=== PATIENT | female | born 1990 | race Caucasian/White ===

== ENCOUNTER 2024-02-17 07:37 | Inpatient (IN) ==
[2024-02-17] MEDS ORDERED: CALCIUM CARBONATE 500 MG CHEWABLE TAB PO PRN (09:56)
[2024-02-17] MEDS ORDERED: LIDOCAINE 1% LOCAL 20 ML VIAL INFIL PRN (09:56)
--- NOTE | 2024-02-17 10:05 | History & Physical Report ---
Date of Service February 17, 2024 Assessment & Plan (1) Post-dates : Plan: IOL with Cytotec Admission and Anticipated Discharge Date Admission Date: February 17, 2024 History of Present Illness Chief Complaint: induction of labor Primary Care Provider: Trevor Khan DO 34 F P1001 at 40.4 weeks admitted for IOL for post-dates. GBS is negative. Allergies Allergy/AdvReac Type Severity Reaction Status Date / Time hazelnut Allergy Anaphylaxis Verified 02/17/24 08:07 Home Medications Medication Instructions Recorded Confirmed Type EPINEPHRINE (EPIPEN) 0.3 mg IM UD ALLERGIC REACTION ##2 04/14/14 Rx omeprazole 20 mg capsule,delayed 20 mg PO DAILY 02/17/24 02/17/24 History release vits no.130-ferrous fum 1 tab PO DAILY 02/17/24 02/17/24 History 27 mg iron-folic acid 800 mcg tablet ( Vitamin) Patient History Surgical History [place] teeth removed Family History Other Colon cancer Social History Smoking Status: Never smoker Hx Alcohol Use: No Hx Substance Use: No Preferred Language: Australian Communication Ability: Effective Flower Picker Required: No Beliefs That Will Affect Care: None marital status: Current Living Situation: Spouse Other Information That Helps Us Care for You: No Feels Safe at Home: Yes Safety Concerns: Feels Safe At This Time Assistive Devices: None OB History x1 NUTRITIONALIST History neg Review of Systems All systems reviewed & are unremarkable except as noted in HPI & below Physical Exam Constitutional: WD/WN, vitals as above Eyes: PERRL, conjunctivae normal, anicteric sclerae Respiratory: normal respiratory effort, lungs clear to auscultation Gastrointestinal (Abdomen): Inspection/Auscultation: abdomen normal to inspection Musculoskeletal: Extremities: extremities normal to inspection Skin: no rashes, warm and dry Neurologic: patellar DTR's 2+ bilat, sensation intact Psychiatric: A+Ox3, euthymic affect Genitourinary: OB Exam Abdomen: + fundal height, + vertex and + posterior Manual OB Exam: + cervical dilation fingertip, + cervical effacement 50% and + station high EFW 8.5 Results & Data Vital Signs (Past 12 Hours) Vital Signs Pulse BP 02/17/24 07:56 85 123/79 Code Status & VTE Plan VTE Prophylaxis Plan VTE Prophylaxis will be ordered: No Monitoring External Monitor Cat 1 (1) Post-dates Post-term type: 40-42 weeks gestation Qualified Code(s): O48.0 - P ost-term
[2024-02-17] MEDS: miSOPROStoL 50 MCG TAB PO ONE (10:22)
[2024-02-17 10:27] LABS: Hematocrit (blood only) 37.1 % (37.0-47.0); Hemoglobin 12.6 g/dl (12.0-16.0); Mean Corpuscular Hemoglobin 30.1 pg (25.0-34.0); Mean Corpuscular Volume 88.5 fL (80.0-100.0); Platelet Count 189 K/uL (130-400); RDW Coefficient of Variation 13.2 % (11.5-14.5); RDW Standard Deviation 42.7 fL (36.4-46.3); Red Blood Count 4.19 M/uL (4.20-5.40); White Blood Count 13.39 K/ul (4.8-10.8)
--- OUTSIDE RECORDS SUMMARY | 2024-02-17 13:12 | External Medical Summary | Summary of Care ---
Author Name Unknown Organization [facility] Address [address] [place] [address] Phone [phone] Care Team Providers Care Mixer Wet Pour Name Role Phone Bernadette Damian Luz Marina ZOHRA Primary Care Provider Reason for Visit * Reason Comments Return Visit Non Stress Test Encounter Details Date Type Department Care Team (Late st Contact Info) Description 02/13/2024 2:30 PM EDT Office Visit Gynecology/Obstetric s [facility] [address] [facility] [place] [address] Thad Snider MD [address] [facility] [address] [place], Non Stress Tests [facility] [address] [facility] [address] Obesity, Class II, BMI 35-39.9, isolated (see actual BMI)*; Supervision of other normal , antepartum; History of depression Allergies Active Allergy Reactions Criticality Noted Date Comments Food (See Comments) High 11/04/2014 Hazelnut - anaphylaxis documented as of this encounter (statuses as of 02/13/2024) Medications Medication Sig Dispensed Refills Start Date End Date Status Plus 27-1 MG Oral Tablet Take 1 Tablet by mouth in the morning. Active Omeprazole 20 MG Oral Tablet Delayed ReleaseIndications:Dy sphagia, unspecified type Take 1 Tablet by mouth in the morning. 90 Tablet 3 05/09/2023 Active Triamcinolone Acetonide 0.1 % External Ointment (Aristocort) Apply 2x daily to rash on legs until resolved, then when flaring. See printed checkout sheet for regimen instructions. 80 g 06/21/2023 Active documented as of this encounter (statuses as of 02/13/2024) Active Problems Problem Noted Date Diagnosed Date Supervision of other normal , antepartu m 07/26/2023 History of depression 07/26/2023 Obesity, Class I, BMI 30.0-34.9 (see actual BMI) 06/24/2021 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 Overview: Per tiller worker/onc, yearly pelvic u/s and endometrial biopsy Tree nut allergy 04/23/2014 Overview: [place] - immediate mouth and throat itching and swelling; hoarseness; positive skin test Well adult exam 04/05/2012 Obesity, Class II, BMI 35-39.9, isolated (see ac tual BMI) 04/05/2012 Overview: Early glucola Serial growth Weekly nst starting at 37w Estimated Date of Delivery Comme nts Yes 02/13/2024 Based on last me nstrual period of 05/09/2023 documented as of this encounter (statuses as of 02/13/2024) Resolved Problems Problem Noted Date Diagnosed Date Resolved Date Normal in first trimester 07/01/2023 01/03/2024 Class II obesity 07/01/2023 01/03/2024 Need for prophylactic vaccin ation and inoculation against influenza 07/01/2023 01/03/2024 Category III heart rat e tracing during labor and delivery 01/24/2022 03/08/2022 Vacuum-assisted vaginal delivery 01/24/2022 03/08/2022 Post-term , 40-42 weeks of gestation 01/24/20 22 03/08/2022 Abnormal glucose tolerance i n mother complicating 07/24/2021 03/08/2022 Overview: Failed early glucola. 3hr GTT passed and again at 28 w. , normal first 06/24/202102/23 Body mass index (BMI) of 40. 0 to 44.9 in adult 01/24/2017 10/07/2021 Overview: Per Obesity protocol #1 Other acne 04/05/2012 12/29/2021 Menstruation, irregular 01/19/200705/27 Generalized hyperhidrosis 01/19/2007 ADVANCE DIRECTIVE INFORMATION 02/18/2006 12/29/2021 Overview: Not applicable documented as of this encounter (statuses as of 02/13/2024) Immunizations Name Administration Dates Next Due COVID-19 mRNA, LNP-s, No Pre serve, 2-Dose Series ([employer]) 03/24/2021,06/09/2020,05/16/2020 HEP A - Hepatitis A (Adult > 18 yrs) 11/04/2014, 12/08/2011 HPV Vaccine, 4-Valent 02/14/2012,09/27/2011,07/2011 Meningococcal Conjugate Vacc ine (Menactra/Menveo) 01/19/2007 PPD 09/22/2022,12/08/2011,10/05/2010 RSV Vac., Bivalent, Perfusio n F, Pf,0.5 Ml (Abrysvo) 01/03/2024 Seasonal Influenza Vac., MDV , IM, 0.5 mL (Fluzone) 04/23/2014,04/29/2012,02/27/2008 Seasonal Influenza, PF, 6 M & above, IM , (FluLaval or Fluzone) 07/01/2023,12/25/2021,01/20/2021 Seasonal Influenza, Quadriva lent, No Preserve, IM 01/10/2020 Seasonal Influenza, Trivalen t, (IIV3), PF, (Fluzone) 01/03/2024 TDAP (age 10 and older)(Boostrix) 11/28/2023,04/2021,07/11/2017 TDAP, Age 7 and older, IM (Adacel) 01/19/2007 Varicella Vaccine (Chicken Pox) 12/08/2011 documented as of this encounter Social History Tobacco Use Types Packs/Day Years Used Date Smoking Tobacco: Never Smokeless Tobacco: Never Comments:mother smokes Alcohol Use Standard Drinks/Week Comments Yes 0 (1 standard drink = 0.6 oz pur e alcohol) casually PHQ-2 Answer Date Recorded PHQ Adult Total Score 0 03/25/2022 Hunger Vital Sign Answer Date Recorded Within the past 12 months, y ou worried that your food would run out before you got the money to buy more. Never true 09/23/19 23 Within the past 12 months, t he food you bought just didn't last and you didn't have money to get more. Never true 09/22/2022 [place] Depression Scale Answer Date Recorded [place] Depression Scale Total 0 07/01/2023 The thought of harming myself has occurred to me . Never 07/01/2023 Utilities Answer Date Recorded Do you have trouble paying y our heating, water, or electric bill? (Adult - for ages 18 years and over) Not on file 10/11/2023 Is your family able to pay t he heat, water, or electric bill? (Household - for ages 0-17 years) Not on file 10/11/2023 Does your family have access to good internet? (Household - for ages 0-17 years) Not on file 10/11/2023 Social Connections Answer Date Recorded How often do you feel lonely or isolated from those around you? (Adult - for ages 18 years and over) Not on file 10/11/2023 Estimated Date of Delivery Comme nts Yes 02/13/2024 Based on last me nstrual period of 05/09/2023 Sex and Gender Information Value Date Recorded Sex Assigned at Female 11/06/2021 1:06 PM EDT Gender Identity Female 11/06/2021 1:06 PM EDT Sexual Orientation Straight 11/06/2021 1: 06 PM EDT Job Start Date Occupation Industry Not on file Not on file Not on file documented as of this encounter Last Filed Vital Signs Vital Sign Reading Time Taken Comments Blood Pressure - - Pulse - - Temperature - - Respiratory Rate - - Oxygen Saturation - - Inhaled Oxygen Concentration - - Weight 112.5 kg (248 lb) 02/13/2024 2:36 PM EDT Height 162.6 cm (5' 4") 02/13/2024 2:36 PM EDT Body Mass Index 42.57 02/13/2024 2:36 PM EDT documented in this encounter Progress Notes * Thad Snider MD - 02/13/2024 3:07 PM EDT Pt doing well Elev BMI- Joel for induction on Tuesday02/17/24 ASSESSMENT assessment with Non-stress Test completed on 02/13/2024 at 40weeks gestation for indication of obesity heart baseline: 130 bpm Variability: Moderate Decelerations: absent Accelerations: present Contractions: None NST start time: 1430 NST stop time: 1450 NST strip reviewed, interpreted, and approved by OB provider, ashley. NST strip stored in clinic storage file documented in this encounter Nursing Notes * Neli Kerns LPN - 02/13/2024 2:47 PM EDT 40w0d NST, RABIA Denies concerns Scheduled for IOL 02/17/24. documented in this encounter Plan of Treatment Scheduled Procedures Name Priority Associated Diagnoses Date/Ti me COLONOSCOPY FLEXIBLE PROXIMAL DIAGNOSTIC Recall Bearden syndrome Health Maintenance Due Date Last Done Comments Hepatitis B Vaccine (1 of 3 - 19+ 3-dose series) 2010 Depression Screening 03/25/2023 03/25/2022 Colonoscopy Positive Bearden Syndrome Annual,Ages 25 & Up 11/23/2023 11/22/2022, 11/22/2022, 01/09/2021, Additional history exists COVID-19 Vaccine ( season) 2023 03/24/2021, 06/09/2020, 05/16/2020 Pap Smear 06/30/2026 07/01/2023, 03/26, 04/21/2020, Additional history exists Cervical Cancer Screening 06/30/2028 HPV/Co-Test 06/30/2028 07/01/2023 DTap/Tdap Vaccines (5 - Td or Tdap) 11/27/2033 11/28/2023, 10/23/2021, 07/11/2017, Additional history exists MENINGOCOCCAL (MENACTRA/MENVEO) Aged Out 01/19/2007 No longer eligible based on patient's age to complete this topic HPV (Gardasil) Vaccine Completed 2, 09/27/2011, 07/28/2011 RETIRED - COLONOSCOPY-ANNUAL AGES 18-100 Discontinued 11/22/2022, 11/22/2022, 01/09/2021, Additional history exists Influenza Vaccine (FLU shot) Completed 01/03/2024, 07/01/2023, 12/25/2021, Additional history exists Pneumococcal Vaccine: Pediatrics (0 to 5 Years) and At-Risk Patients (6 to 64 Years) Aged Out No longer eligible based on patient's age to complete this topic documented as of this encounter Medical Devices Not on filedocumented as of this encounter Visit Diagnoses Diagnosis Obesity, Class II, BMI 35-39.9, isolated (see actual BMI)- Primary Morbid obesity Supervision of other normal , antepartum History of depression documented in this encounter Advance Directives * Full Code (Latest Code Status on File) Date Activated Date Inactivated Comments 01/23/2022 5:37 PM 01/26/2022 3:08 PM This order r eflects the patients wishes and were consensually agreed upon. Question Answer Comments Discussion of Advance Direct cherelle occurred with: Not Discussed due to patient's condition Care Teams Mixer Wet Pour Relationship Specialty Start Date End Date Bernadette Damian CRNP [address] [place] [id number] PCP - General Nurse Practitioner 09/30/23 documented as of this encounter
--- OUTSIDE RECORDS SUMMARY | 2024-02-17 13:12 | External Medical Summary ---
Author Name Unknown Address Unknown Organization [id number]:[facility] [address] [place] [address] Laboratory Report Ordering Provider Test Date Status GILBERT TORRES 02/03/2024 14:52:49 Final Observation Date Value Abnormality Reference (Units ) Status Streptococcus agalactiae DNA [Presence] in Specimen by HERMAN with probe detection 02/03/2024 14:52:49 Negative Negative Final No Group B Streptococcus det ected by culture-enhanced PCR (amplified probe). GBS GBSCT - [facility] 02/03/2024 14:52:49 0.0 Final GBS SPCCT - [facility] 02/03/2024 14:52:49 30.6 Final Performing Location [facility] [place] [address] [place] [address]
--- OUTSIDE RECORDS SUMMARY | 2024-02-17 13:12 | External Medical Summary | Summary of Care ---
Author Name Unknown Organization [facility] Address [address] [place] [address] Phone [phone] Care Team Providers Care Survey Rodman Name Role Phone Bernadette Damian Luz Marina العلي Primary Care Provider Reason for Visit * Reason Comments Return Visit Non Stress Test Encounter Details Date Type Department Care Team (Late st Contact Info) Description 02/03/2024 2:15 PM EDT Office Visit Gynecology/Obstetric s [facility] [address] [facility] [place] [address] Genevieve Ordoñez CRNP [address] [facility] [place] [address] [place], Non Stress Tests [facility] [address] [facility] [address] Supervision of other normal , antepartum*; Obesity, Class II, BMI 35-39.9, isolated (see actual BMI); History of depression Allergies Active Allergy Reactions Criticality Noted Date Comments Food (See Comments) High 11/04/2014 Hazelnut - anaphylaxis documented as of this encounter (statuses as of 02/03/2024) Medications Medication Sig Dispensed Refills Start Date [...] as of this encounter (statuses as of 02/03/2024) Active Problems Problem Noted Date Diagnosed Date Supervision of other normal , antepartu m 07/26/2023 History of depression 07/26/2023 Obesity, Class I, BMI 30.0-34.9 (see actual BMI) 06/24/2021 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 Overview: Per gyn physician/onc, yearly pelvic u/s and endometrial biopsy Tree [...] as of this encounter (statuses as of 02/03/2024) Resolved Problems Problem Noted Date Diagnosed Date [...] as of this encounter (statuses as of 02/03/2024) Immunizations Name Administration Dates Next Due COVID-19 mRNA, LNP-s, No Pre serve, 2-Dose Series ([employer]) 03/24/2021,06/09/2020,05/16/2020 HEP A - Hepatitis A (Adult [...] money to get more. Never true 09/22/2022 [place] Depression Scale Answer Date Recorded [place] Depression Scale Total 0 07/01/2023 The thought [...] Sign Reading Time Taken Comments Blood Pressure 122/78 02/03/2024 2:19 PM EDT Pulse - - Temperature - - Respiratory Rate - - Oxygen Saturation - - Inhaled Oxygen Concentration - - Weight 111.6 kg (246 lb) 02/03/2024 2:19 PM EDT Height 162.6 cm (5' 4") 02/03/2024 2:19 PM EDT Body Mass Index 42.23 02/03/2024 2:19 PM EDT documented in this encounter Progress Notes * Genevieve Ordoñez CRNP - 02/03/2024 2:33 PM EDT 38w4d No concerns. Baby is active. No contractions or bleeding. IOL scheduled. GBS today. Smt Machine Operator Documentation Provider requested construction economist. Name of construction economist: Key ASSESSMENT assessment with Non-stress Test completed on 02/03/2024 at 38.4weeks gestation for indicationof obesity heart baseline: 130 bpm Variability: Moderate Decelerations: absent Accelerations: present Contractions: None NST start time: 1422 NST stop time: 1444 NST strip reviewed, interpreted, and approved by OB provider, ZOHRA Newman . NST strip stored in clinic storage file documented in this encounter Plan of Treatment Upcoming Encounters Date Type Department Care Team (Late st Contact Info) Description 02/08/2024 3:15 PM EDT Office Visit Gynecology/Obstetrics [facility] [address] [place] [address] Genevieve Ordoñez CRNP [address] [place] [address] 02/13/2024 2:30 PM EDT Office Visit Gynecology/Obstetrics [facility] [address] [place] [address] Thad Snider MD [address] [place] [address] [facility] Stress Tests Archie [address] [place] [id number] Pending Results Name Type Priority Associated Diagnoses Date /Time GROUP B STREP CULTURE/PCR Lab Routine Supervision of other normal , antepartum 02/03/2024 2:52 PM EDT Scheduled Procedures Name Priority Associated Diagnoses Date/Ti me COLONOSCOPY FLEXIBLE PROXIMAL DIAGNOSTIC Recall Bearden syndrome Health Maintenance Due Date Last Done Comments Hepatitis B Vaccine (1 of 3 - 19+ 3-dose series) 2010 Depression Screening 03/25/2023 03/25/2022 Colonoscopy Positive Bearden Syndrome Annual,Ages 25 & Up 11/23/2023 11/22/2022, 11/22/2022, 01/09/2021, Additional history exists COVID-19 Vaccine (2023- season) 2023 03/24/2021, 06/09/2020, 05/16/2020 Pap Smear [...] as of this encounter Visit Diagnoses Diagnosis Supervision of other normal , antepartum- Primary Obesity, Class II, BMI 35-39.9, isolated (see actual BMI) Morbid obesity History of depression documented in this encounter Advance Directives * Full Code (Latest Code Status on File) Date Activated Date Inactivated Comments 01/23/2022 5:37 PM 01/26/2022 3:08 PM This order r eflects the patients wishes and were consensually agreed upon. Question Answer Comments Discussion of Advance Direct cherelle occurred with: Not Discussed due to patient's condition Care Teams Survey Rodman Relationship Specialty Start Date End Date Bernadette Damian CRNP [address] [place] [address] PCP - General Nurse Practitioner 09/30/23 documented as of this encounter
--- OUTSIDE RECORDS SUMMARY | 2024-02-17 13:13 | External Medical Summary ---
Author Name Unknown Address Unknown Organization [id number]:[facility] [address] - [address] [facility] [address] Laboratory Report Ordering Provider Test Date Status CULLEN MORA 10/18/2023 09:21:40 Final For PreSurgery, Procedure, O B Admit, or Surveillance testing - Nasal Turbinate source preferred.

For Symptomatic testing - Nasopharyngeal source preferred.
null Observation Date Value Abnormality Reference (Units ) Status SARS Coronavirus 2 10/18/2023 09:21:40 Negative N egative Final 2018 Novel Coronavirus not d etected.

This express test was developed and its performance characteristics determined by [employer] [facility]. It has not been cleared or approved by the U.S. Food and Drug Administration (FDA). FDA does not require this test to go thru premarket FDA review. This test is used for clinical purposes. It should not be regarded as investigational or for research. This laboratory is certified under the Clinical Laboratory Improvement Amendments (CLIA) as qualified to perform high complexity clinical laboratory testing.

This test is a nucleic acid amplification test (NAAT), a reverse transcriptase polymerase chain reaction (RT-PCR) test, or a Centers for Disease Control-acceptable equivalent. The test is performed in a high complexity Clinical Laboratory Improvement Amendments-(CLIA) certified laboratory. The test is acceptable for SARS-CoV-2 diagnosis, surveillance, and travel within the [place] and to most countries. Please check with local testing authorities about requirements before travel.

The validation of bronchial specimens, tracheal aspirates, and sputum for this assay was developed and performance characteristics determined by [employer] [facility]. The validation of alternate specimen types has not been cleared or approved by the U.S. Food and Drug Administration (FDA). It has been determined that such clearance is not necessary. Performing Location [facility] [address] - [address] [place] [address]
--- OUTSIDE RECORDS SUMMARY | 2024-02-17 13:13 | External Medical Summary ---
Author Name Unknown Address Unknown Organization [facility] [facility] [address] [place] [address] Laboratory Report Ordering Provider Test Date Status VIKAS HADLEY 11/28/2023 10:19:57 Final Observation Date Value Abnormality Reference (Units ) Status Glucose [Moles/volume] in Serum or Plasma --1 hour post 50 g glucose PO 11/28/2023 10:19:57 119 70-129 (mg/dL) Final Performing Location [facility] [facility] - [address] [place] [address]
--- OUTSIDE RECORDS SUMMARY | 2024-02-17 13:13 | External Medical Summary | Summary of Care ---
Author Name Unknown Organization [facility] Address [address] [place] [address] Phone [phone] Care Team Providers Care Shelter Supervisor Name Role Phone Bernadette Damian Luz Marina العلي Primary Care Provider Reason for Visit * Reason Comments Return Visit Encounter Details Date Type Department Care Team (Late st Contact Info) Description 11/28/2023 9:15 AM EDT Office Visit Gynecology/Obstetric s [facility] [address] [place] [address] Anali Del Rosario PA-C [address] [place] [address] Supervision of other normal , antepartum*; Obesity, Class II, BMI 35-39.9, isolated (see actual BMI); History of depression; Need for qjggrepswc-imhrzqn-oq rtussis (Tdap) vaccine Allergies Active Allergy Reactions Criticality Noted Date Comments Food (See Comments) High 11/04/2014 Hazelnut - anaphylaxis documented as of this encounter (statuses as of 11/28/2023) Medications Medication Sig Dispensed Refills Start Date [...] as of this encounter (statuses as of 11/28/2023) Active Problems Problem Noted Date Diagnosed Date Supervision of other normal , antepartu m 07/26/2023 History of depression 07/26/2023 Normal in first trimester 07/01/2023 Class II obesity 07/01/2023 Need for prophylactic vaccin ation and inoculation against influenza 07/01/2023 Obesity, Class I, BMI 30.0-34.9 (see actual BMI) 06/24/2021 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 Overview: Per rn gynecology/onc, yearly pelvic u/s and endometrial biopsy Tree [...] as of this encounter (statuses as of 11/28/2023) Resolved Problems Problem Noted Date Diagnosed Date Resolved Date Category III heart rat e tracing during [...] as of this encounter (statuses as of 11/28/2023) Immunizations Name Administration Dates Next Due COVID-19 mRNA, LNP-s, No Pre serve, 2-Dose Series ([employer]) 03/24/2021,06/09/2020,05/16/2020 HEP A - Hepatitis A (Adult > 18 yrs) 11/04/2014, 12/08/2011 HPV Vaccine, 4-Valent 02/14/2012,09/27/2011,04/07/2011 Meningococcal Conjugate Vacc ine (Menactra/Menveo) 01/19/2007 PPD 09/22/2022,12/08/2011,10/05/2010 Seasonal Influenza, PF, 6 M & above, IM , (FluLaval or Fluzone) 07/01/2023,12/25/2021,01/20/2021 Seasonal Influenza, Quadriva lent, No Preserve, IM 01/10/2020 Seasonal Influenza, Split, I IV3, With Preserve, Inj 04/23/2014,04/29/2012,02/27/2008 TDAP (age 10 and older)(Boostrix) 11/28/2023,04/2021,07/11/2017 TDAP, [...] money to get more. Never true 09/22/2022 [place] Depression Scale Answer Date Recorded [place] Depression Scale Total 0 07/01/2023 The thought [...] Sign Reading Time Taken Comments Blood Pressure 98/72 11/28/2023 9:06 AM EDT Pulse - - Temperature - - Respiratory Rate - - Oxygen Saturation - - Inhaled Oxygen Concentration - - Weight 107 kg (236 lb) 11/28/2023 9:06 AM EDT Height 162.6 cm (5' 4") 11/28/2023 9:06 AM EDT Body Mass Index 40.51 11/28/2023 9:06 AM EDT documented in this encounter Progress Notes * Anali Del Rosario PA-C - 11/28/2023 10:28 AM EDT 29w0d Third tri labs including glucola today. Doing well. Growth u/s today secondary to class 2 obesity, preliminary findings: 1311 g+/- 191 g which is at avu04tz percentile. Normal DANIEL. Vertex. Counseled on TDaP, accepts. Varicose vein left inner leg. Pt reports had in last , improved PP. Varicosity noted left inner lower leg, not tender without any firmness or redness. Soft to palpation. Discussed compression stockings -- notify office if increased pain, redness or firmness in area, reviewed thrombophlebitis -- no appearance of this today. Denies LOF, VB, contractions. Baby is active. RTC in 2 weeks Anali Del Rosario PA-C documented in this encounter Nursing Notes * Neli Kerns LPN - 11/28/2023 9:37 AM EDT Patient here for tdap injection. Patient doing well no complaints. Injection given IM as ordered. Patient tolerated well. Patient to follow up as directed. Patient instructed to call if any complications. Patient verbalized understanding of instructions given and her follow up appt for RABIA Injection site: Right Deltoid Medication Source: Dispensed stock medication * Neli Kerns LPN - 11/28/2023 9:23 AM EDT 29w0d Had growth us today, and 28 wk labs Would like tdap documented in this encounter Plan of Treatment Upcoming Encounters Date Type Department Care Team (Late st Contact Info) Description 12/12/2023 9:15 AM EDT Office Visit Gynecology/Obstetrics Lina Valiente [address] [place] [address] Anali Del Rosario PA-C [address] [place] [address] 12/28/2023 3:30 PM EDT Imaging Radiology [address] [place] [address] 12/28/2023 4:30 PM EDT Office Visit Gynecology/Obstetrics [facility] [address] [place] [address] Anali Del Rosario PA-C [address] [place] [address] 01/11/2024 4:30 PM EDT Office Visit Gynecology/Obstetrics [facility] [address] [place] [address] Anali Del Rosario PA-C [address] [place] [address] 2024 4:30 PM EDT Office Visit Gynecology/Obstetrics [facility] [address] [place] [address] Anali Del Rosario PA-C [address] [place] [address] 01/30/2024 3:30 PM EDT Imaging Radiology [address] [place] [address] 01/30/2024 4:30 PM EDT Office Visit Gynecology/Obstetrics [facility] [address] [place] [address] Anali Del Rosario PA-C [address] [place] [address] 02/08/2024 3:15 PM EDT Office Visit Gynecology/Obstetrics [facility] [address] [place] [address] Genevieve Ordoñez CRNP [address] [place] [address] 02/13/2024 4:30 PM EDT Office Visit Gynecology/Obstetrics Lina Valiente [address] [place] [address] Anali Del Rosario PA-C [address] [place] [address] Scheduled Procedures Name Priority Associated Diagnoses Date/Ti me COLONOSCOPY FLEXIBLE PROXIMAL DIAGNOSTIC Recall Bearden syndrome Health Maintenance Due Date Last Done Comments Hepatitis B Vaccine (1 of 3 - 19+ 3-dose series) 2010 COVID-19 Vaccine (2022- season) 2022 03/24/2021, 06/09/2020, 05/16/2020 Depression Screening 03/25/2023 03/25/2022 Colonoscopy Positive Bearden Syndrome Annual,Ages 25 & Up 11/23/2023 11/22/2022, 11/22/2022, 01/09/2021, Additional history exists Influenza Vaccine (FLU shot) (#1) 2023 07/01/2023, 12/25/2021, 01/20/2021, Additional history exists Pap Smear 06/30/2026 07/01/2023, 03/26, 04/21/2020, Additional history exists Cervical Cancer Screening 06/30/2028 HPV/Co-Test 06/30/2028 07/01/2023 DTaP,Tdap,and Td Vaccines (5 - Td or Tdap) 11/27/2033 11/28/2023, 10/23/2021, 07/11/2017, Additional history exists MENINGOCOCCAL (MENACTRA/MENVEO) Aged Out 01/19/2007 No longer eligible based on patient's age to complete this topic HPV (Gardasil) Vaccine Completed 2, 09/27/2011, 07/28/2011 RETIRED - COLONOSCOPY-ANNUAL AGES 18-100 Discontinued 11/22/2022, 11/22/2022, 01/09/2021, Additional history exists Pneumococcal Vaccine: Pediatrics (0 [...] actual BMI) Morbid obesity History of depression Need for cmjoiexaxh-eisnxyz-cwtgjmyok (Tdap) vaccine Need for prophylactic vaccination with combined bkijbeuovr-gtjyyxt-fpvuuyezk (DTP) vaccine documented in this encounter Advance Directives * Full Code (Latest Code Status on File) Date Activated Date Inactivated Comments 01/23/2022 5:37 PM 01/26/2022 3:08 PM This order r eflects the patients wishes and were consensually agreed upon. Question Answer Comments Discussion of Advance Direct cherelle occurred with: Not Discussed due to patient's condition Care Teams Shelter Supervisor Relationship Specialty Start Date End Date Bernadette Damian CRNP [address] [place] [address] PCP - General Nurse Practitioner 09/30/23 documented as of this encounter
--- OUTSIDE RECORDS SUMMARY | 2024-02-17 13:13 | External Medical Summary ---
Author Name Unknown Address Unknown Organization K0G:[facility] [address] [address] [place] [id number] Laboratory Report Ordering Provider Test Date Status VIKAS HADLEY 11/28/2023 10:19:57 Final Observation Date Value Abnormality Reference (Units ) Status WBC, Total 11/28/2023 10:19:57 9.92 4.00-10.8 0 (K/uL) Final RBC 11/28/2023 10:19:57 3.95 3.85-5.15 (M/uL) Final Hemoglobin 11/28/2023 10:19:57 12.3 12.0-15.3 (g/dL) Final Anemia reflex testing trigge rs on a HGB < 12.0 for Females and HGB < 13.0 for Males in accordance with the WHO Anemia Guidelines
Anemia reflex testing triggers on a HGB < 12.0 for Females and HGB < 13.0 for Males in accordance with the WHO Anemia Guidelines HCT 11/28/2023 10:19:57 37.1 36.0-45.2 (%) Final MCV 11/28/2023 10:19:57 93.9 81.5-97.5 (fL) Final MCH 11/28/2023 10:19:57 31.1 27.0-34.0 (pg) Final MCHC 11/28/2023 10:19:57 33.2 32.0-36.0 (g/dL) Final RDW 11/28/2023 10:19:57 12.7 11.5-15.5 (%) Final Platelets 11/28/2023 10:19:57 173 140-400 (K /uL) Final MPV 11/28/2023 10:19:57 10.8 6.6-11.1 ( fL) Final Performing Location [facility] [place] [address] [place] [address]
--- OUTSIDE RECORDS SUMMARY | 2024-02-17 13:13 | External Medical Summary | Summary of Care ---
Author Name Unknown Organization [facility] Address [address] [place] [address] Phone [phone] Care Team Providers Care Senior Executive Assistant Name Role Phone Bernadette Damian Luz Marina ZOHRA Primary Care Provider Reason for Visit * Reason Comments Return Visit Encounter Details Date Type Department Care Team (Late st Contact Info) Description 12/12/2023 9:15 AM EDT Office Visit Gynecology/Obstetric s [facility] [address] [place] [address] Anali Del Rosario PA-C [address] [place] [address] Supervision of other normal , antepartum*; Obesity, Class II, BMI 35-39.9, isolated (see actual BMI); History of depression Allergies Active Allergy Reactions Criticality Noted Date Comments Food (See Comments) High 11/04/2014 Hazelnut - anaphylaxis documented as of this encounter (statuses as of 12/12/2023) Medications Medication Sig Dispensed Refills Start Date [...] as of this encounter (statuses as of 12/12/2023) Active Problems Problem Noted Date Diagnosed Date Supervision of other normal , antepartu m 07/26/2023 History of depression 07/26/2023 Normal in first trimester 07/01/2023 Class II obesity 07/01/2023 Need for prophylactic vaccin ation and inoculation against influenza 07/01/2023 Obesity, Class I, BMI 30.0-34.9 (see actual BMI) 06/24/2021 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 3hr GTT passed and again at 28 w. , normal first 06/24/202102/23 Body mass index (BMI) of 40. 0 to 44.9 in adult 01/24/2017 10/07/2021 Overview: Per Obesity protocol #1 Other acne 04/05/2012 12/29/2021 Menstruation, irregular 01/19/2007 02/2 07/2021 Generalized hyperhidrosis 01/19/2007 ADVANCE DIRECTIVE INFORMATION 02/18/2006 12/29/2021 Overview: Not applicable documented as of this encounter (statuses as of 12/12/2023) Immunizations Name Administration Dates Next Due COVID-19 mRNA, LNP-s, No Pre serve, 2-Dose Series ([employer]) 03/24/2021,06/09/2020,05/16/2020 HEP A - Hepatitis A (Adult > 18 yrs) 11/04/2014, 12/08/2011 HPV Vaccine, 4-Valent 02/14/2012,09/27/2011,0407/2011 Meningococcal Conjugate Vacc ine (Menactra/Menveo) 01/19/2007 PPD [...] money to get more. Never true 09/22/2022 [place] Depression Scale Answer Date Recorded [place] Depression Scale Total 0 07/01/2023 The thought [...] Sign Reading Time Taken Comments Blood Pressure 114/82 12/12/2023 9:08 AM EDT Pulse - - Temperature - - Respiratory Rate - - Oxygen Saturation - - Inhaled Oxygen Concentration - - Weight 107.5 kg (237 lb) 12/12/2023 9:08 AM EDT Height 162.6 cm (5' 4") 12/12/2023 9:08 AM EDT Body Mass Index 40.68 12/12/2023 9:08 AM EDT documented in this encounter Progress Notes * Anali Del Rosraio PA-C - 12/12/2023 9:25 AM EDT 31w0d Has bruise near lateral aspect of right eyebrow. Unsure if daughter bumped it, doesn't remember. Feels it is smaller since first noticing. Advised okay to continue to monitor, notify office if not resolve/enlarging. Growth next visit. Reviewed NST to start at 37 weeks. RTC in 2 weeks Anali Del Rosario PA-C documented in this encounter Nursing Notes * Neli Kerns LPN - 12/12/2023 9:08 AM EDT 31w0d Denies concerns documented in this encounter Plan of Treatment Upcoming Encounters Date Type Department Care Team (Late st Contact Info) Description 12/28/2023 3:30 PM EDT Imaging Radiology [facility] [address] [place] [address] 12/28/2023 4:30 PM EDT Office Visit Gynecology/Obstetrics [facility] [address] [place] [address] Anali Del Rosario PA-C [address] [place] [address] 01/11/2024 4:30 PM EDT Office Visit Gynecology/Obstetrics [facility] [address] [place] [address] Anali Del Rosario PA-C [address] [place] [address] 2024 4:30 PM EDT Office Visit Gynecology/Obstetrics [facility] [address] [place] [address] Anali Del Rosario PA-C [address] [place] [address] 01/30/2024 3:30 PM EDT Imaging Radiology [facility] [address] [place] [address] 01/30/2024 4:30 PM EDT Office Visit Gynecology/Obstetrics [facility] [address] [place] [address] Anali Del Rosario PA-C [address] [place] [address] 02/08/2024 3:15 PM EDT Office Visit Gynecology/Obstetrics [facility] [address] [place] [address] Genevieve Ordoñez CRNP [address] [place] [address] 02/13/2024 4:30 PM EDT Office Visit Gynecology/Obstetrics [facility] [address] [place] [address] Anali Del Rosario PA-C [address] [place] [address] Scheduled Orders Name Type Priority Associated Diagnoses Orde r Schedule US PREG FOLLOW-UP EACH FETUS Medical Imaging Routine Supervision of other normal , antepartum Obesity, Class II, BMI 35-39.9, isolated (see actual BMI) Expected: 12/28/2023, Expires: 01/11/2025 Scheduled Procedures Name Priority Associated Diagnoses Date/Ti me COLONOSCOPY FLEXIBLE PROXIMAL DIAGNOSTIC Recall Bearden syndrome Health Maintenance Due Date Last Done Comments Hepatitis B Vaccine (1 of 3 - 19+ 3-dose series) 2010 COVID-19 Vaccine ( season) 2022 03/24/2021, 06/09/2020, 05/16/2020 Depression Screening [...] Discussed due to patient's condition Care Teams Senior Executive Assistant Relationship Specialty Start Date End Date Bernadette Damian CRNP [address] [place] [address] PCP - General Nurse Practitioner 09/30/23 documented as of this encounter
--- OUTSIDE RECORDS SUMMARY | 2024-02-17 13:13 | External Medical Summary | Summary of Care ---
Author Name Unknown Organization [facility] Address [address] [place] [address] Phone [phone] Care Team Providers Care Certified [place] Administrator Name Role Phone Bernadette Damian Luz Marina العلي Primary Care Provider Reason for Visit * Reason Onset Date Comments Advice 10/24/2023 Encounter Details Date Type Department Care Team (Late st Contact Info) Description 10/24/2023 Telephone Family Practice [facility] [address] [place] [address] Fuentes Crook DO [address] [place] [address] Advice Allergies Active Allergy Reactions Criticality Noted Date Comments Food (See Comments) High 11/04/2014 Hazelnut - anaphylaxis documented as of this encounter (statuses as of 10/24/2023) Medications Medication Sig Dispensed Refills Start Date End Date Status Plus 27-1 MG Oral Tablet Take 1 Tablet by mouth in the morning. Active Omeprazole 20 MG Oral Tablet Delayed ReleaseIndications :Dysphagia, unspecified type Take 1 Tablet by mouth in the morning. 90 Tablet 3 05/09/2023 Active Additional Information Patient not taking.Reported on 07/01/2023 Triamcinolone Acetonide 0.1 % External Ointment (Aristocort) Apply 2x daily to rash on legs until resolved, then when flaring. See printed checkout sheet for regimen instructions. 80 g 06/21/2023 Active Amoxicillin 875 MG Oral TabletIndications: Bronchitis, complicated Take 1 Tablet by mouth in the morning and 1 Tablet before bedtime. Do all this for 10 days. 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, yearly pelvic u/s and endometrial biopsy Tree [...] as of this encounter (statuses as of 10/24/2023) Resolved Problems Problem Noted Date Diagnosed Date [...] as of this encounter (statuses as of 10/24/2023) Immunizations Name Administration Dates Next Due COVID-19 mRNA, LNP-s, No Pre serve, 2-Dose Series ([employer]) 03/24/2021,06/09/2020,05/16/2020 HEP A - Hepatitis A (Adult > 18 yrs) 11/04/2014, 12/08/2011 HPV Vaccine, 4-Valent 02/14/2012,09/27/2011,04/0 07/2011 Meningococcal Conjugate Vacc ine (Menactra/Menveo) 01/19/2007 PPD 09/22/2022,12/08/2011,10/05/2010 Seasonal Influenza, PF, 6 M & above, IM , (FluLaval or Fluzone) 07/01/2023,12/25/2021,01/20/2021 Seasonal Influenza, Quadriva lent, No Preserve, IM 01/10/2020 Seasonal Influenza, Split, I IV3, With Preserve, Inj 04/23/2014,04/29/2012,02/27/2008 TDAP (age 10 and older)(Boostrix) 10/23/2021, TDAP, Age 7 and older, IM (Adacel) [...] money to get more. Never true 09/22/2022 [place] Depression Scale Answer Date Recorded [place] Depression Scale Total 0 07/01/2023 The thought [...] on file documented as of this encounter Miscellaneous Notes * Telephone Encounter - Krysta Dinero RN - 10/24/2023 4:02 PM EDT Pt made aware in myg encounter from 10/19 * Telephone Encounter - Fuentes Crook DO - 10/24/2023 3:28 PM EDT Ok to try amox But may still be viral Either way f/u in clinic if worsening * Telephone Encounter - Olga Rodriguez LPN - 10/24/2023 8:22 AM EDT Pt calling due to being seen by Dr Crook on 10/17 for a cough. There has not been any improvement. She is coughing phlegm up greenish yellow. No fever. She did take mucinex but is 24 weeks and concerned about taking OTC meds. She is inquiring if ABX could be sent? Please advise. documented in this encounter Plan of Treatment Upcoming Encounters Date Type Department Care Team (Late st Contact Info) Description 10/31/2023 8:15 AM EDT Imaging Radiology [address] [place] [address] 10/31/2023 9:15 AM EDT Office Visit Gynecology/Obstetrics [facility] [address] [place] [address] Anali Del Rosario PA-C [address] [place] [address] 11/28/2023 8:15 AM EDT Imaging Radiology [address] [place] [address] 11/28/2023 9:15 AM EDT Office Visit Gynecology/Obstetrics [facility] [address] [place] [address] Anali Del Rosario PA-C [address] [place] [address] 12/12/2023 9:15 AM EDT Office Visit Gynecology/Obstetrics [facility] [address] [place] [address] Anali Del Rosario PA-C [address] [place] [address] 12/28/2023 3:30 PM EDT Imaging Radiology [address] [place] [address] 12/28/2023 4:30 PM EDT Office Visit Gynecology/Obstetrics [facility] [address] [place] [address] Anali Del Rosario PA-C [address] [place] [address] 01/11/2024 4:30 PM EDT Office Visit Gynecology/Obstetrics [facility] [address] [place] [address] Anali Del Rosario PA-C [address] [place] [address] 2024 4:30 PM EDT Office Visit Gynecology/Obstetrics [facility] [address] [place] [address] Anali Del Rosario PA-C [address] [place] [address] 01/30/2024 3:30 PM EDT Imaging Radiology [address] [place] [address] 01/30/2024 4:30 PM EDT Office Visit Gynecology/Obstetrics [facility] [address] [place] [address] Anali Del Rosario PA-C [address] [place] [address] 02/08/2024 3:15 PM EDT Office Visit Gynecology/Obstetrics [facility] [address] [place] [address] Genevieve Ordoñez CRNP [address] [place] [address] 02/13/2024 4:30 PM EDT Office Visit Gynecology/Obstetrics Lina Valiente [address] [place] [address] Anali Del Rosario PA-C [address] [place] [address] Scheduled Procedures Name Priority Associated Diagnoses Date/Ti me COLONOSCOPY FLEXIBLE PROXIMAL DIAGNOSTIC Recall Bearden syndrome Health Maintenance Due Date Last Done Comments Hepatitis B (1 of 3 - 19+ 3-dose series) [...] 06/30/2028 HPV/Co-Test 06/30/2028 07/01/2023 DTaP,Tdap,and Td Vaccines (4 - Td or Tdap) 10/24/2031 10/23/2021, 07/11/2017, 01/19/2007 MENINGOCOCCAL (MENACTRA/MENVEO) Aged Out 01/19/2007 No longer eligible based on patient's age to complete this topic GARDASIL-HPV IMMUNIZATION SERIES Completed 02/14/2012, 09/27/2011, 07/28/2011 RETIRED - COLONOSCOPY-ANNUAL AGES 18-100 Discontinued 11/22/2022, 11/22/2022, 01/09/2021, Additional history exists Pneumococcal Vaccine: Pediatrics (0 to 5 Years) and At-Risk Patients (6 to 64 Years) Aged Out No longer eligible based on patient's age to complete this topic documented as of this encounter Medical Devices Not on filedocumented as of this encounter Visit Diagnoses Diagnosis Bronchitis, complicated- Primary Bronchitis, not specified as acute or chronic documented in this encounter Advance Directives * Full Code (Latest Code Status on File) Date Activated Date Inactivated Comments 01/23/2022 5:37 PM 01/26/2022 3:08 PM This order r eflects the patients wishes and were consensually agreed upon. Question Answer Comments Discussion of Advance Direct cherelle occurred with: Not Discussed due to patient's condition Care Teams Certified [place] Administrator Relationship Specialty Start Date End Date Bernadette Damian CRNP [address] [place] [address] PCP - General Nurse Practitioner 09/30/23 documented as of this encounter
--- OUTSIDE RECORDS SUMMARY | 2024-02-17 13:13 | External Medical Summary | Summary of Care ---
Author Name Unknown Organization [facility] Address [address] [place] [address] Phone [phone] Care Team Providers Care Fire Alarm Mechanic Name Role Phone Bernadette Damian Luz Marina العلي Primary Care Provider Reason for Visit * Reason Comments Return Visit Encounter Details Date Type Department Care Team (Late st Contact Info) Description 01/23/2024 2:30 PM EDT Office Visit Gynecology/Obstetric s [facility] [address] [place] [address] Thad Snider MD [address] [place] [address] [place], Non Stress Tests [facility] [address] [place] [address] Obesity, Class II, BMI 35-39.9, isolated (see actual BMI)*; Supervision of other normal , antepartum; History of depression Allergies Active Allergy Reactions Criticality Noted Date Comments Food (See Comments) High 11/04/2014 [place]nut - anaphylaxis documented as of this encounter (statuses as of 01/23/2024) Medications Medication Sig Dispensed Refills Start Date [...] as of this encounter (statuses as of 01/23/2024) Active Problems Problem Noted Date Diagnosed Date Supervision of other normal , antepartu m 07/26/2023 History of depression 07/26/2023 Obesity, Class I, BMI 30.0-34.9 (see actual BMI) 06/24/2021 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 Overview: 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, yearly pelvic u/s and endometrial biopsy Tree [...] as of this encounter (statuses as of 01/23/2024) Resolved Problems Problem Noted Date Diagnosed Date [...] as of this encounter (statuses as of 01/23/2024) Immunizations Name Administration Dates Next Due COVID-19 mRNA, LNP-s, No Pre serve, 2-Dose Series ([employer]) 03/24/2021,06/09/2020,05/16/2020 HEP A - Hepatitis A (Adult > 18 yrs) 11/04/2014, 12/08/2011 HPV Vaccine, 4-Valent 02/14/2012,09/27/2011,0407/2011 Meningococcal Conjugate Vacc ine (Menactra/Menveo) 01/19/2007 PPD 09/22/2022,12/08/2011,10/05/2010 RSV Vac., Bivalent, Perfusio n F, Pf,0.5 Ml (Abrysvo) 01/03/2024 Seasonal Influenza, PF, 6 M & above, IM , (FluLaval or Fluzone) 07/01/2023,12/25/2021,01/20/2021 Seasonal Influenza, Quadriva lent, No Preserve, IM 01/10/2020 Seasonal Influenza, Trivalen t, (IIV3), PF, (Fluzone) 01/03/2024 Seasonal Influenza, Trivalen t, (IIV3), with Preserv, (Fluzone) 04/23/2014,04/29/2012,02/27/2008 TDAP (age 10 and older)(Boostrix) 11/28/2023,04/2021,07/11/2017 [...] money to get more. Never true 09/22/2022 [place] Depression Scale Answer Date Recorded [place] Depression Scale Total 0 07/01/2023 The thought [...] - Inhaled Oxygen Concentration - - Weight 110.2 kg (243 lb) 01/23/2024 2:33 PM EDT Height - - Body Mass Index 41.71 12/12/2023 9:08 AM EDT documented in this encounter Progress Notes * Thad Snider MD - 01/23/2024 3:14 PM EDT Pt doing well No complaints Obesity class II ASSESSMENT assessment with Non-stress Test completed on 01/23/2024 at 37weeks gestation for indication ofobesity heart baseline: 140 bpm Variability: Moderate Decelerations: absent Accelerations: present Contractions: None NST start time: 1430 NST stop time: 1450 NST strip reviewed, interpreted, and approved by OB provider, ashley. NST strip stored in clinic storage file Thad Snider MD 01/23/2024 3:15 PM] documented in this encounter Nursing Notes * Michelle Oates LPN - 01/23/2024 3:07 PM EDT 37w0d Pt asking to do GBS at next visit Pt would also like to deliver at [facility] now documented in this encounter Plan of Treatment Upcoming Encounters Date Type Department Care Team (Late st Contact Info) Description 01/30/2024 3:30 PM EDT Imaging Radiology [facility] 2nd [facility] [address] [place] [address] 02/03/2024 2:15 PM EDT Office Visit [facility]necology[facility] [address] [place] [address] Genevieve Ordoñez CRNP [address] [place] [address] [place] Non Stress Tests [facility] [address] [place] [address] 02/08/2024 3:15 PM EDT Office Visit Gynecology/Obstetrics [facility] [address] [facility] [facility] [place] [place] [address] Genevieve Ordoñez CRNP [address] [place] [address] 02/13/2024 2:30 PM EDT Office Visit Gynecology/Obstetrics [facility] [address] [facility] [place] [address] Thad Snider MD [address] [place] [address] [facility] Stress Tests [facility] [address] [place] [address] Scheduled Procedures Name Priority Associated Diagnoses Date/Ti [...] Discussed due to patient's condition Care Teams Fire Alarm Mechanic Relationship Specialty Start Date End Date Bernadette Damian CRNP [address] [place] [address] PCP - General Nurse Practitioner 09/30/23 documented as of this encounter
--- OUTSIDE RECORDS SUMMARY | 2024-02-17 13:13 | External Medical Summary | Summary of Care ---
Author Name Unknown Organization [facility] Address [address] [place] [place] [address] Phone [phone] Care Team Providers Care Football Scout Name Role Phone Bernadette Damian Luz Marina العلي Primary Care Provider Encounter Details Date Type Department Care Team (Late st Contact Info) Description 12/12/2023 Telephone Gynecology/Obstetrics [facility] [address] [place] [address] Anali Del Rosario PA-C [address] [facility] [place] [address] Allergies Active Allergy Reactions Criticality Noted Date Comments Food (See Comments) High 11/04/2014 Hazelnut - anaphylaxis documented as of this encounter (statuses as of 12/13/2023) Medications Medication Sig Dispensed Refills Start Date [...] as of this encounter (statuses as of 12/13/2023) Active Problems Problem Noted Date Diagnosed Date Supervision of other normal , antepartu m 07/26/2023 History of depression 07/26/2023 Normal in first trimester 07/01/2023 Class II obesity 07/01/2023 Need for prophylactic vaccin ation and inoculation against influenza 07/01/2023 Obesity, Class I, BMI 30.0-34.9 (see actual BMI) 06/24/2021 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 Never true 09/22/2022 [place] Depression Scale Answer Date Recorded [place] Depression Scale Total 0 07/01/2023 The thought [...] encounter Miscellaneous Notes * Telephone Encounter - Kady Nath RN - 12/12/2023 9:51 AM EDT Patient calling to start scheduling NSTs at 37w. Please contact patient to help schedule. documented in this encounter Plan of Treatment Upcoming Encounters Date Type Department Care Team (Late st Contact Info) Description 12/28/2023 3:30 PM EDT Imaging Radiology [facility] 2nd [facility] [address] [place] [address] 12/28/2023 4:30 PM EDT Office Visit Gynecology/Obstetrics [facility] [address] [place] [address] Anali Del Rosario PA-C [address] [place] [address] 01/11/2024 4:30 PM EDT Office Visit Gynecology/Obstetrics [facility] [address] [place] [address] Anali Del Rosario PA-C [address] [place] [address] 01/23/2024 4:30 PM EDT Office Visit Gynecology/Obstetrics [facility] [address] [place] [address] Anali Del Rosario PA-C [address] [place] [address] 2024 2:30 PM EDT Office Visit Gynecology/Obstetrics [facility] [address] [place] [address] Genevieve Ordoñez CRNP [address] [place] [address] [place] Non Stress Tests [facility] [address] [place] [address] 01/30/2024 3:30 PM EDT Imaging Radiology [facility] 2nd Floor, [place] [address] [place] [address] 01/30/2024 4:30 PM EDT Office Visit Gynecology/Obstetrics [facility] [address] [place] [address] Anali Del Rosario PA-C [address] [place] [address] 02/08/2024 3:15 PM EDT Office Visit Gynecology/Obstetrics [facility] [address] [place] [address] Genevieve Ordoñez CRNP [address] [place] [address] 02/13/2024 4:30 PM EDT Office Visit Gynecology/Obstetrics [facility] [address] [place] [address] Anali Del Rosario PA-C [address] [place] [address] Scheduled Procedures Name Priority Associated Diagnoses Date/Ti [...] Not on filedocumented as of this encounter Advance Directives * Full Code (Latest Code Status on File) Date Activated Date Inactivated Comments 01/23/2022 5:37 PM 01/26/2022 3:08 PM This order r eflects the patients wishes and were consensually agreed upon. Question Answer Comments Discussion of Advance Direct cherelle occurred with: Not Discussed due to patient's condition Care Teams Football Scout Relationship Specialty Start Date End Date Bernadette Damian CRNP [address] [place] [address] PCP - General Nurse Practitioner 09/30/23 documented as of this encounter
--- OUTSIDE RECORDS SUMMARY | 2024-02-17 13:13 | External Medical Summary | Summary of Care ---
Author Name Unknown Organization [facility] Address [address] [place] [address] Phone [phone] Care Team Providers Care Commissary Clerk Name Role Phone Bernadette Damian Luz Marina العلي Primary Care Provider Reason for Visit * Reason Comments Return Visit Encounter Details Date Type Department Care Team (Late st Contact Info) Description 10/31/2023 9:15 AM EDT Office Visit Gynecology/Obstetric s [facility] [address] [place] [address] Anali Del Rosario PA-C [address] [place] [address] Supervision of other normal , antepartum*; Obesity, Class II, BMI 35-39.9, isolated (see actual BMI); History of depression Allergies Active Allergy Reactions Criticality Noted Date Comments Food (See Comments) High 11/04/2014 [place]elnut - anaphylaxis documented as of this encounter (statuses as of 10/31/2023) Medications Medication Sig Dispensed Refills Start Date [...] as of this encounter (statuses as of 10/31/2023) Active Problems Problem Noted Date Diagnosed Date Supervision of other normal , antepartu m 07/26/2023 History of depression 07/26/2023 Normal in first trimester 07/01/2023 Class II obesity 07/01/2023 Need for prophylactic vaccin ation and inoculation against influenza 07/01/2023 Obesity, Class I, BMI 30.0-34.9 (see actual BMI) 06/24/2021 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 Never true 09/22/2022 [place] Depression Scale Answer Date Recorded [place] Depression Scale Total 0 07/01/2023 The thought [...] Sign Reading Time Taken Comments Blood Pressure 108/70 10/31/2023 8:58 AM EDT Pulse - - Temperature - - Respiratory Rate - - Oxygen Saturation - - Inhaled Oxygen Concentration - - Weight 106.5 kg (234 lb 12.8 oz) 10/31/2023 8:58 AM EDT Height - - Body Mass Index 40.3 09/30/2023 11:21 AM EDT documented in this encounter Progress Notes * Anali Del Rosario PA-C - 10/31/2023 9:09 AM EDT 25w0d Doing well, no concerns. Growth today for class 2, preliminary 34%ile, normal DANIEL. Continue q4 wks. Reviewed third tri labs. Had normal early 1 hour gtt. Interested in RSV and flu vaccine if able to get. Will touch base with PCP regarding COVID-19 booster. Plans TDaP next visit. RTC in 3 weeks Anali Del Rosario PA-C * Chyna Camacho MED ASSIST - 10/31/2023 9:03 AM EDT 25w0d Denies vaginal bleeding/rom + movements No new concerns US done today- growth 34% DANIEL 18.8 documented in this encounter Plan of Treatment Upcoming Encounters Date Type Department Care Team (Late st Contact Info) Description 11/28/2023 8:15 AM EDT Imaging Radiology [facility] 2nd [facility] [address] [place] [address] 11/28/2023 9:00 AM EDT Laboratory Laboratory, [facility] [address] [place] [id number] [facility] [place] [address] 11/28/2023 9:15 AM EDT Office Visit Gynecology/Obstetrics [facility] [address] [place] [address] Anali Del Rosario PA-C [address] [place] [address] 12/12/2023 9:15 AM EDT Office Visit Gynecology/Obstetrics [facility] [address] [place] [address] Anali Del Rosario PA-C [address] [place] [address] 12/28/2023 3:30 PM EDT Imaging Radiology [address] [place] [address] 12/28/2023 4:30 PM EDT Office Visit Gynecology/Obstetrics [facility] [address] [place] [address] Anali Del Rosario PA-C [address] [place] [address] 01/11/2024 4:30 PM EDT Office Visit Gynecology/Obstetrics [facility] [address] [place] [address] Anali Del Rosario PA-C [address] [place] [address] 2024 4:30 PM EDT Office Visit Gynecology/Obstetrics [facility] [address] [place] [address] Anali Del Rosario PA-C [address] [place] [address] 01/30/2024 3:30 PM EDT Imaging Radiology [address] [place] [address] 01/30/2024 4:30 PM EDT Office Visit Gynecology/Obstetrics [facility] [address] [place] [address] Anali Del Rosario PA-C [address] [place] [address] 02/08/2024 3:15 PM EDT Office Visit Gynecology/Obstetrics [facility] [address] [place] [address] Genevieve Ordoñez CRNP [address] [place] [address] 02/13/2024 4:30 PM EDT [facility] [address] [place] [address] Anali Del Rosario PA-C [address] [place] [address] Scheduled Orders Name Type Priority Associated Diagnoses Orde r Schedule 50-G GESTATIONAL GLUCOSE, 1 HOUR Lab Routine Supervision of other normal , antepartum Expected: 11/21/2023 (Approximate), Expires: 10/30/2024 CBC WITH WBC DIFFERENTIAL AND ANEMIA REFLEX WORKUP Lab Routine Supervision of other normal , antepartum Expected: 11/21/2023 (Approximate), Expires: 10/30/2024 SYPHILIS ANTIBODY SCREEN WITH REFLEX TO RPR Lab Routine Supervision of other normal , antepartum Expected: 11/21/2023 (Approximate), Expires: 10/30/2024 Scheduled Procedures Name Priority Associated Diagnoses Date/Ti [...] Discussed due to patient's condition Care Teams Commissary Clerk Relationship Specialty Start Date End Date Bernadette Damian CRNP [address] [place] [address] PCP - General Nurse Practitioner 09/30/23 documented as of this encounter
--- OUTSIDE RECORDS SUMMARY | 2024-02-17 13:13 | External Medical Summary | Summary of Care ---
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 Never true 09/22/2022 [place] Depression Scale Answer Date Recorded [place] Depression Scale Total 0 07/01/2023 The thought [...] Description 12/28/2023 3:30 PM EDT Imaging Radiology [facility] 2nd [facility] [address] [address] 12/28/2023 4:30 PM EDT Office Visit Gynecology/Obstetrics [facility] [address] [address] Anali Del Rosario PA-C [address] [place] [address] 01/11/2024 4:30 PM EDT Office Visit Gynecology/Obstetrics [facility] [address] [place] [address] Anali Del Rosario PA-C [address] [place] [address] 01/23/2024 2:30 PM EDT Office Visit Gynecology/Obstetrics [facility] [address] [place] [address] Thad Snider MD [address] [place] [address] [facility] Non Stress Tests [facility] [address] [place] [address] 01/23/2024 4:30 PM EDT Office Visit Gynecology/Obstetrics [facility] [address] [place] [address] Anali Del Rosario PA-C [address] [place] [address] 01/30/2024 3:30 PM EDT Imaging Radiology [facility] 2nd Floor, [place] [address] [place] [address] 01/30/2024 4:30 PM EDT Office Visit Gynecology/Obstetrics [facility] [address] [place] [address] Anali Del Rosario PA-C [address] [place] [address] 02/08/2024 3:15 PM EDT Office Visit Gynecology/Obstetrics [facility] [address] [place] [address] Genevieve Ordoñez CRNP [address] [place] [address] 02/13/2024 4:30 PM EDT Office Visit Gynecology/Obstetrics [facility] [address] [place] [address] Anali Del Rosario PA-C [address] [place] [address] Scheduled Procedures Name Priority Associated Diagnoses Date/Ti [...] Discussed due to patient's condition Care Teams Compressor House Operator Relationship Specialty Start Date End Date Bernadette Damian CRNP [address] [place] [address] PCP - General Nurse Practitioner 09/30/23 documented as of this encounter
--- OUTSIDE RECORDS SUMMARY | 2024-02-17 13:13 | External Medical Summary | Summary of Care ---
Author Name Unknown Organization [facility] Address [address] [place] [address] Phone [phone] Care Team Providers Care Signal Engineer Name Role Phone Bernadette Damian Luz Marina ZOHRA Primary Care Provider Reason for Visit * Reason Comments Sore Throat Pt c/o sore throat a nd headaches x 4 days. Dry cough x 2 days. Denies nasal congetion. No elevated temp noted per pt. Denies body aches. Pt is 23 weeks gestation. 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 Active Omeprazole 20 MG Oral Tablet Delayed ReleaseIndications: Dysphagia, unspecified type Take 1 Tablet by mouth in the morning. 90 Tablet 3 05/09/2023 Active Additional Information Patient not taking.Reported on 07/01/2023 Triamcinolone Acetonide 0.1 % External Ointment (Aristocort) Apply 2x daily to rash on legs until resolved, then when flaring. See printed checkout sheet for regimen instructions. 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 Never true 09/22/2022 [place] Depression Scale Answer Date Recorded [place] Depression Scale Total 0 07/01/2023 The thought [...] Sign Reading Time Taken Comments Blood Pressure 108/72 10/18/2023 9:15 AM EDT Pulse 102 10/18/2023 9:15 AM EDT Temperature 36.4 C (97.6 F) 10/18/2023 9:15 AM ED T Respiratory Rate 16 10/18/2023 9:15 AM EDT Oxygen Saturation 99% 10/18/2023 9:15 AM EDT Inhaled Oxygen Concentration - - Weight 103.1 kg (227 lb 3 oz) 10/18/2023 9:15 AM EDT Height - - Body Mass Index 39 09/30/2023 11:21 AM EDT documented in this encounter Progress Notes * Fuentes Crook, - 10/18/2023 9:16 AM EDT Images from the original note were not included. Assessment and Plan Viral URI with cough Educated on conservative treatment to include good hydration, rest, and humidified air. Educated the patient on signs of bacterial illness to include sudden worsening symptoms, high fevers, and increasing severity of illness. Follow up as needed. Obesity, Class II, BMI 35-39.9, isolated (see actual BMI) managed Supervision of other normal , antepartum Continue f/u with women's health Person under investigation for COVID-19 - SARS-COV-2 (COVID-19), NAAT History of Present Illness Kimberly Avalos is a 33 year old female that presents for Sore Throat (Pt c/o sore throat and headaches x 4 days. Dry cough x 2 days. Denies nasal congetion. No elevated temp noted per pt. Deniesbody aches. Pt is 23 weeks gestation.) Presents with a few days of URI sx Having congestion and post nasal drip And some cough, worse at night Using OTC tylenol and salt water gargle Physical Exam Vitals: 10/18/23 0915 Temp: 36.4 C (97.6 F) Pulse: 102 Resp: 16 SpO2: 99% BP: 108/72 Physical Exam Constitutional: Appearance: Normal appearance. HENT: Head: Normocephalic and atraumatic. Right Ear: Ear canal and external ear normal. Left Ear: Ear canal and external ear normal. Nose: Mucosal edema, congestion and rhinorrhea present. Eyes: Extraocular Movements: Extraocular movements intact. Conjunctiva/sclera: Conjunctivae normal. Pupils: Pupils are equal, round, and reactive to light. Cardiovascular: Rate and Rhythm: Normal rate and regular rhythm. Heart sounds: No murmur heard. No friction rub. No gallop. Pulmonary: Effort: Pulmonary effort is normal. No tachypnea, respiratory distress or retractions. Breath sounds: Normal breath sounds. Transmitted upper airway sounds present. Abdominal: General: Abdomen is flat. Bowel sounds are normal. Palpations: Abdomen is soft. Musculoskeletal: General: Normal range of motion. Cervical back: Neck supple. Lymphadenopathy: Cervical: Cervical adenopathy present. Skin: General: Skin is warm. Neurological: General: No focal deficit present. Mental Status: She is alert and oriented to person, place, and time. Psychiatric: Mood and Affect: Mood normal. Behavior: Behavior normal. Wrap-Up Time: Total time today was 25 minutes excluding any time spent in the performance of separately billed services. documented in this encounter Nursing Notes * Claudette Gordon LPN - 10/18/2023 9:17 AM EDT The patient has been properly identified by confirmation of name and date of . Chief Complaint Patient presents with Sore Throat Pt c/o sore throat and headaches x 4 days. Dry cough x 2 days. Denies nasal congetion. No elevated temp noted per pt. Denies body aches. Pt is 23 weeks gestation. documented in this encounter Plan of Treatment Upcoming Encounters Date Type Department Care Team (Late st Contact Info) Description 10/31/2023 8:15 AM EDT Imaging Radiology [facility] 2nd [facility] 132 [facility] [place] [address] 10/31/2023 9:15 AM EDT Office Visit Gynecology/Obstetrics [facility] [place] [address] Anali Del Rosario PA-C [address] [place] [address] 11/28/2023 9:15 AM EDT Office Visit Gynecology/Obstetrics [facility] 132 [facility] [place] [address] Anali Del Rosario PA-C [address] [place] [address] 12/12/2023 9:15 AM EDT Office Visit Gynecology/Obstetrics [facility] [address] [place] [address] Anali Del Rosario PA-C [address] [place] [address] 12/28/2023 4:30 PM EDT Office Visit Gynecology/Obstetrics [facility] [address] [place] [address] Anali Del Rosario PA-C [address] [place] [address] 01/11/2024 4:30 PM EDT Office Visit Gynecology/Obstetrics [facility] [address] [place] [address] Anali Del Rosario PA-C [address] [place] [address] 2024 4:30 PM EDT Office Visit Gynecology/Obstetrics [facility] [address] [place] [address] Anali Del Rosario PA-C [address] [place] [address] 01/30/2024 4:30 PM EDT Office Visit Gynecology/Obstetrics [facility] [address] [place] [address] Anali Del Rosario PA-C [address] [place] [address] 02/08/2024 3:15 PM EDT Office Visit Gynecology/Obstetrics [facility] [address] [place] [address] Genevieve Ordoñez CRNP [address] [place] [address] 02/13/2024 4:30 PM EDT Office Visit Gynecology/Obstetrics Lina Valiente [address] [place] [address] Anali Del Rosario PA-C [address] [place] [address] Pending Results Name Type Priority Associated Diagnoses Date /Time SARS-COV-2 (COVID-19), NAAT Lab Routine Person under investigation for COVID-19 10/18/2023 9:21 AM EDT Scheduled Procedures Name Priority Associated Diagnoses Date/Ti me COLONOSCOPY FLEXIBLE PROXIMAL DIAGNOSTIC Recall Bearden syndrome Health Maintenance Due Date Last Done Comments Hepatitis B (1 of 3 - 19+ 3-dose series) 2010 COVID-19 Vaccine (2022- season) 2022 03/24/2021, 06/09/2020, 05/16/2020 Depression Screening 03/25/2023 03/25/2022 Colonoscopy Positive Bearden Syndrome Annual,Ages 25 & Up 11/23/2023 11/22/2022, 11/22/2022, 01/09/2021, Additional history exists Pap Smear 06/30/2026 07/01/2023, [...] history exists Influenza Vaccine (FLU shot) Completed 07/01/2023, 12/25/2021, 01/20/2021, Additional history exists Pneumococcal Vaccine: Pediatrics (0 to 5 Years) and At-Risk Patients (6 to 64 Years) Aged Out No longer eligible based on patient's age to complete this topic documented as of this encounter Medical Devices Not on filedocumented as of this encounter Visit Diagnoses Diagnosis Viral URI with cough- Primary Acute upper respiratory infections of unspecified site Obesity, Class II, BMI 35-39.9, isolated (see actual BMI) Morbid obesity Supervision of other normal , antepartum Person under investigation for COVID-19 documented in this encounter Advance Directives * Full Code (Latest Code Status on File) Date Activated Date Inactivated Comments 01/23/2022 5:37 PM 01/26/2022 3:08 PM This order r eflects the patients wishes and were consensually agreed upon. Question Answer Comments Discussion of Advance Direct cherelle occurred with: Not Discussed due to patient's condition Care Teams Signal Engineer Relationship Specialty Start Date End Date Bernadette Damian CRNP [address] [place] [address] PCP - General Nurse Practitioner 09/30/23 documented as of this encounter
--- OUTSIDE RECORDS SUMMARY | 2024-02-17 13:13 | External Medical Summary ---
Author Name Unknown Address Unknown Organization [facility] [place] [address] [place] [address] Laboratory Report Ordering Provider Test Date Status VIKAS HADLEY 11/28/2023 10:19:57 Final Observation Date Value Abnormality Reference (Units ) Status SYNC LEUKOCYTES IN BLOOD BY AUTOMATED COUNT 11/28/2023 10:19:57 9.92 4.00-10.80 (K/uL) Final Segs 11/28/2023 10:19:57 79.2 Above high normal 40.0-75.0 (%) Final Lymphs % 11/28/2023 10:19:57 13.1 Below low normal 18.0-42.0 (%) Final Monos 11/28/2023 10:19:57 5.2 1.0-11.0 (%) Final Eosinophils 11/28/2023 10:19:57 2.3 0.0-6.0 (%) Final Basos 11/28/2023 10:19:57 0.2 0.0-2.0 (%) Final Absolute Segs 11/28/2023 10:19:57 7.85 Above high normal 1.80-7.70 (K/uL) Final Lymphs, absolute 11/28/2023 10:19:57 1.30 1.00-4.80 (K/ul) Final Monos, Abs 11/28/2023 10:19:57 0.52 0.00-1.10 (K/uL) Final Eos, Abs 11/28/2023 10:19:57 0.23 0.00-0.70 (K/uL) Final Basos, Abs 11/28/2023 10:19:57 0.02 0.00-0.20 (K/uL) Final Performing Location [facility] [place] [address] [place] [address]
--- OUTSIDE RECORDS SUMMARY | 2024-02-17 13:13 | External Medical Summary | Summary of Care ---
Author Name Unknown Organization [facility] [address] [facility] [address] Phone [phone] Care Team Providers Care Property Maintenance Supervisor Name Role Phone Bernadette Damian Luz Marina العلي Primary Care Provider Encounter Details Date Type Department Care Team (Late st Contact Info) Description 09/30/2023 11:30 AM EDT Office Visit Gynecology/Obstetric s Lina Valiente [address] [place] [address] Anali Del Rosario PA-C [address] [place] [address] Supervision of other normal , antepartum*; Obesity, Class II, BMI 35-39.9, isolated (see actual BMI); History of depression Allergies Active Allergy Reactions Criticality Noted Date Comments Food (See Comments) High 11/04/2014 [place]elnut - anaphylaxis documented as of this encounter (statuses as of 09/30/2023) Medications Medication Sig Dispensed Refills Start Date [...] as of this encounter (statuses as of 09/30/2023) Active Problems Problem Noted Date Diagnosed Date Supervision of other normal , antepartu m 07/26/2023 History of depression 07/26/2023 Normal in first trimester 07/01/2023 Class II obesity 07/01/2023 Need for prophylactic vaccin ation and inoculation against influenza 07/01/2023 Obesity, Class I, BMI 30.0-34.9 (see actual BMI) 06/24/2021 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: 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, 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 pelvic u/s and endometrial biopsy Tree [...] as of this encounter (statuses as of 09/30/2023) Resolved Problems Problem Noted Date Diagnosed Date [...] #1 Other acne 04/05/2012 12/29/2021 Menstruation, irregular 01/19/200[address] 07/2021 Generalized hyperhidrosis 01/19/2007 ADVANCE DIRECTIVE INFORMATION 02/18/2006 12/29/2021 Overview: Not applicable documented as of this encounter (statuses as of 09/30/2023) Immunizations Name Administration Dates Next Due COVID-19 mRNA, LNP-s, No Pre serve, 2-Dose Series ([employer]) 03/24/2021,06/09/2020,05/16/2020 HEP A - Hepatitis A (Adult [...] money to get more. Never true 09/22/2022 [place] Depression Scale Answer Date Recorded [place] Depression Scale Total 0 07/01/2023 The thought of harming myself has occurred to me . Never 07/01/2023 Estimated Date of Delivery Comme nts Yes [...] Sign Reading Time Taken Comments Blood Pressure 120/72 09/30/2023 11:21 AM EDT Pulse - - Temperature - - Respiratory Rate - - Oxygen Saturation - - Inhaled Oxygen Concentration - - Weight 102.1 kg (225 lb) 09/30/2023 11:21 AM EDT Height 162.6 cm (5' 4") 09/30/2023 11:21 AM EDT Body Mass Index 38.62 09/30/2023 11:21 AM EDT documented in this encounter Progress Notes * Anali Del Rosario PA-C - 09/30/2023 12:39 PM EDT 20w4d Anatomy today, FHT by ultrasound. No concerns. No bleeding, leaking. + quickening. Growth q4 wks, ordered to be completed next visit secondary to class 2 obesity RTC in 4 weeks Anali Del Rosario PA-C * Michelle Oates LPN - 09/30/2023 11:21 AM EDT 20w4d Anatomy today documented in this encounter Plan of Treatment Upcoming Encounters Date Type Department Care Team (Late st Contact Info) Description 10/31/2023 8:15 AM EDT Imaging Radiology [facility] 2nd [facility] [address] [place] [address] 10/31/2023 9:15 AM EDT Office Visit Gynecology/Obstetrics [facility] [address] [place] [address] Anali Del Rosario PA-C [address] [place] [address] 11/28/2023 9:15 AM EDT Office Visit Gynecology/Obstetrics [facility] [address] [place] [address] Anali Del Rosario PA-C [address] [place] [address] 12/12/2023 9:15 AM EDT Office Visit Gynecology/Obstetrics [facility] [address] [place] [address] Anali Del Rosario PA-C [address] [place] [address] 12/28/2023 4:30 PM EDT Office Visit Gynecology/Obstetrics [facility] [address] [place] [address] Anali Del Rosario PA-C [address] [place] [address] 01/11/2024 4:30 PM EDT Office Visit Gynecology/Obstetrics [facility] [address] [place] [address] Anali Del Rosario PA-C [address] [place] [address] 2024 4:30 PM EDT Office Visit Gynecology/Obstetrics [facility] [address] [place] [address] Anali Del Rosario PA-C [address] [place] [address] 01/30/2024 4:30 PM EDT Office Visit Gynecology/Obstetrics [facility] [address] [place] [address] Anali Del Rosario PA-C [address] [place] [address] 02/08/2024 3:15 PM EDT Office Visit Gynecology/Obstetrics [facility] [address] [place] [address] Genevieve Ordoñez CRNP [address] [place] [address] 02/13/2024 4:30 PM EDT Office Visit Gynecology/Obstetrics [facility] [address] [place] [address] Anali Del Rosario PA-C [address] [place] [address] Scheduled Orders Name Type Priority Associated Diagnoses Orde r Schedule US PREG FOLLOW-UP EACH FETUS Medical Imaging Routine Supervision of other normal , antepartum Expected: 10/30/2023, Expires: 10/29/2024 Scheduled Procedures Name Priority Associated Diagnoses Date/Ti [...] Discussed due to patient's condition Care Teams Property Maintenance Supervisor Relationship Specialty Start Date End Date Bernadette Damian CRNP [address] [place] [address] PCP - General Nurse Practitioner 09/30/23 documented as of this encounter
--- OUTSIDE RECORDS SUMMARY | 2024-02-17 13:13 | External Medical Summary | Summary of Care ---
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 Never true 09/22/2022 [place] Depression Scale Answer Date Recorded [place] Depression Scale Total 0 07/01/2023 The thought [...] Description 12/28/2023 3:30 PM EDT Imaging Radiology [facility] 2nd [facility] [address] [place] [address] 12/28/2023 4:30 PM EDT Office Visit Gynecology/Obstetrics [facility] [address] [place] [address] Anali Del Rosario PA-C [address] [place] [address] 01/11/2024 4:30 PM EDT Office Visit Gynecology/Obstetrics [facility] [address] [place] [address] Anali Dle Rosario PA-C [address] [place] [address] 01/23/2024 2:30 PM EDT Office Visit Gynecology/Obstetrics [facility] [address] [place] [address] Thad Snider MD [address] [place] [address] [facility] Non Stress Tests [facility] [address] [place] [address] 01/23/2024 4:30 PM EDT Office Visit Gynecology/Obstetrics [facility] [address] [place] [address] Anali Del Rosario PA-C [address] [place] [address] 01/30/2024 3:30 PM EDT Imaging Radiology [facility] 2nd Floor, [place] [address] [place] [address] 01/30/2024 4:30 PM EDT Office Visit Gynecology/Obstetrics [facility] [address] [place] [address] Anali De lRosario PA-C [address] [place] [address] 02/08/2024 3:15 PM EDT Office Visit Gynecology/Obstetrics [facility] [address] [place] [address] Genevieve Ordoñez CRNP [address] [place] [address] 02/13/2024 4:30 PM EDT Office Visit Gynecology/Obstetrics Lina Valiente [address] [place] [address] Anali Del Rosario PA-C [address] [place] [address] Scheduled Procedures Name Priority Associated Diagnoses Date/Ti [...] Discussed due to patient's condition Care Teams Meat Service Team Member Relationship Specialty Start Date End Date Bernadette Damian CRNP [address] [place] [address] PCP - General Nurse Practitioner 09/30/23 documented as of this encounter
--- OUTSIDE RECORDS SUMMARY | 2024-02-17 13:13 | External Medical Summary | Summary of Care ---
Author Name Unknown Organization [facility] Address [address] [place] [address] Phone [phone] Care Team Providers Care Laboratory Supervisor Name Role Phone MataBernadette caban Luz Marina العلي Primary Care Provider Reason for Visit * Reason Comments Return Visit Encounter Details Date Type Department Care Team (Late st Contact Info) Description 01/03/2024 2:45 PM EDT Office Visit Gynecology/Obstetric s Wilcoxyolanda Valiente [address] [place] [address] BackerAracely CRNP [address] [place] [address] Supervision of other normal , antepartum*; Obesity, Class II, BMI 35-39.9, isolated (see actual BMI); History of depression; Needs flu shot; Need for RSV vaccination Allergies Active Allergy Reactions Criticality Noted Date Comments Food (See Comments) High 11/04/2014 Hazelnut - anaphylaxis documented as of this encounter (statuses as of 01/03/2024) Medications Medication Sig Dispensed Refills Start Date [...] as of this encounter (statuses as of 01/03/2024) Active Problems Problem Noted Date Diagnosed Date Supervision of other normal , antepartu m 07/26/2023 History of depression 07/26/2023 Obesity, Class I, BMI 30.0-34.9 (see actual BMI) 06/24/2021 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 Never true 09/22/2022 [place] Depression Scale Answer Date Recorded [place] Depression Scale Total 0 07/01/2023 The thought [...] Sign Reading Time Taken Comments Blood Pressure 116/84 01/03/2024 2:58 PM EDT Pulse - - Temperature - - Respiratory Rate - - Oxygen Saturation - - Inhaled Oxygen Concentration - - Weight 106.3 kg (234 lb 6.4 oz) 01/03/2024 2:58 PM EDT Height - - Body Mass Index 40.23 12/12/2023 9:08 AM EDT documented in this encounter Progress Notes * Chyna Camacho CMA - 01/03/2024 3:20 PM EDT Patient here for RSV vaccine injection. Patient doing well no complaints. Injection given IM as ordered. Patient tolerated well. Patient to follow up as directed. Patient instructed to call if any complications. Patient verbalized understanding of instructions given and her follow up appt for RABIA Injection site: Right Deltoid Medication Source: Dispensed stock medication Patient here for FLU vaccine injection. Patient doing well no complaints. Injection given IM as ordered. Patient tolerated well. Patient to follow up as directed. Patient instructed to call if any complications. Patient verbalized understanding of instructions given and her follow up appt for RABIA Injection site: Left Deltoid Medication Source: Dispensed stock medication * Chyna Camacho CMA - 01/03/2024 2:58 PM EDT 34w1d Denies any concerns FLU vaccine RSV vaccine * Aracely Mejia CRNP - 01/03/2024 2:55 PM EDT 34w1d Normal growth scan last week. Baby is active, no leaking/bleeding or regular ctx. 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 Not quite ready for a hysterectomy. Accepts flu and RSV vaccinations today. 2 week return, discussed GBS swab to be completed at that time. Scheduled to start NSTs at 37 weeks. ZOHRA Moody documented in this encounter Plan of Treatment Upcoming Encounters Date Type Department Care Team (Late st Contact Info) Description 01/11/2024 4:15 PM EDT Office Visit Gynecology/Obstetrics [facility] [address] [place] [address] Thad Snider MD [address] [place] [address] 01/23/2024 2:30 PM EDT Office Visit Gynecology/Obstetrics [facility] [address] [place] [address] Thad Snider MD [address] [place] [address] [place], Non Stress Tests Archie [address] [place] [address] 01/30/2024 3:30 PM EDT Imaging Radiology [facility] 2nd Floor, [place] [address] [place] [address] 02/03/2024 2:15 PM EDT Office Visit Gynecology/Obstetrics [facility] [address] [place] [address] Genevieve Ordoñez CRNP [address] [place] [address] Valiente, Non Stress Tests [facility] [address] [place] [address] 02/08/2024 3:15 PM EDT Office Visit Gynecology/Obstetrics [facility] [address] [place] [address] Genevieve Ordoñez CRNP [address] [place] [address] 02/13/2024 2:30 PM EDT Office Visit Gynecology/Obstetrics [facility] [address] [place] [address] Thad Snider MD [address] [place] [address] Valiente, Non Stress Tests Archie [address] [place] [address] Scheduled Orders Name Type Priority Associated Diagnoses Orde r Schedule US PREG FOLLOW-UP EACH FETUS Medical Imaging Routine Supervision of other normal , antepartum Obesity, Class II, BMI 35-39.9, isolated (see actual BMI) Expected: 01/24/2024 (Approximate), Expires: 02/01/2025 Scheduled Procedures Name Priority Associated Diagnoses Date/Ti me COLONOSCOPY FLEXIBLE PROXIMAL DIAGNOSTIC Recall Bearden syndrome Health Maintenance Due Date Last Done Comments Hepatitis B Vaccine (1 of 3 - 19+ 3-dose series) 2010 Depression Screening 03/25/2023 03/25/2022 Colonoscopy Positive Bearden Syndrome Annual,Ages 25 & Up 11/23/2023 11/22/2022, 11/22/2022, 01/09/2021, Additional history exists COVID-19 Vaccine (2022- season) 2023 03/24/2021, 06/09/2020, 05/16/2020 Pap Smear [...] actual BMI) Morbid obesity History of depression Needs flu shot Need for prophylactic vaccination and inoculation against influenza Need for RSV vaccination Need for prophylactic vaccination and inoculation against respiratory syncytial virus documented in this encounter Advance Directives * Full Code (Latest Code Status on File) Date Activated Date Inactivated Comments 01/23/2022 5:37 PM 01/26/2022 3:08 PM This order r eflects the patients wishes and were consensually agreed upon. Question Answer Comments Discussion of Advance Direct cherelle occurred with: Not Discussed due to patient's condition Care Teams Laboratory Supervisor Relationship Specialty Start Date End Date Bernadette Damian CRNP [address] [place] [address] PCP - General Nurse Practitioner 09/30/23 documented as of this encounter
--- OUTSIDE RECORDS SUMMARY | 2024-02-17 13:13 | External Medical Summary | Summary of Care ---
Author Name Unknown Organization [facility] Address [address] [place] [address] Phone [phone] Care Team Providers Care Feed Handler Name Role Phone Bernadette Damian Luz Marina العلي Primary Care Provider Reason for Visit * Reason Comments Outpatient Testing Encounter Details Date Type Department Care Team (Late st Contact Info) Description 11/28/2023 9:00 AM EDT Laboratory Laboratory, [facility] [address] [place] [address] [facility] [address] [place] [address] Supervision of other normal , antepartum Allergies Active Allergy Reactions Criticality Noted Date [...] 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 Never true 05/31/20 23 Within the past 12 months, t he food you bought just didn't last and you didn't have money to get more. Never true 09/22/2022 [place] Depression Scale Answer Date Recorded [place] Depression Scale Total 0 07/01/2023 The thought [...] on file documented as of this encounter Plan of Treatment Upcoming Encounters Date Type Department Care Team (Late st Contact Info) Description 12/12/2023 9:15 AM EDT Office Visit Gynecology/Obstetrics [facility] [address] [place] [address] Anali Del Rosario PA-C [address] [place] [address] 12/28/2023 3:30 PM EDT Imaging Radiology [facility] 2nd [facility] [address] [place] [address] 12/28/2023 4:30 PM EDT Office Visit Gynecology/Obstetrics [facility] [address] [address] Anali Del Rosario PA-C [address] [place] [address] 01/11/2024 4:30 PM EDT Office Visit Gynecology/Obstetrics [facility] [address] [place] [address] Anali Del Rosario PA-C [address] [place] [address] 2024 4:30 PM EDT Office Visit Gynecology/Obstetrics [facility] [address] [place] [address] Anali Del Rosario PA-C [address] [place] [address] 01/30/2024 3:30 PM EDT [facility] [address] [place] [address] 01/30/2024 4:30 PM EDT Office Visit Gynecology/Obstetrics [facility] [address] [place] [address] Anali Del Rosario PA-C [address] [place] [address] 02/08/2024 3:15 PM EDT Office Visit Gynecology/Obstetrics [facility] [address] [place] [address] Genevieve Ordoñez CRNP [address] [place] [address] 02/13/2024 4:30 PM EDT Office Visit Gynecology/Obstetrics [facility] [address] [place] [address] Anali Del Rosario PA-C [address] [place] [address] Pending Results Name Type Priority Associated Diagnoses Date /Time 50-G GESTATIONAL GLUCOSE, 1 HOUR Lab Routine Supervision of other normal , antepartum 11/28/2023 10:19 AM EDT CBC WITH WBC DIFFERENTIAL AND ANEMIA REFLEX WORKUP Lab Routine Supervision of other normal , antepartum 11/28/2023 10:19 AM EDT SYPHILIS ANTIBODY SCREEN WITH REFLEX TO RPR Lab Routine Supervision of other normal , antepartum 11/28/2023 10:19 AM EDT ANEMIA REFLEX CHEMISTRY HOLD Lab Routine Supervision of other normal , antepartum 11/28/2023 10:19 AM EDT SYPHILIS ANTIBODY SCREEN Lab Routine Supervision of other normal , antepartum 11/28/2023 10:19 AM EDT Scheduled Procedures Name Priority Associated [...] Not on filedocumented as of this encounter Procedures Procedure Name Priority Date/Time Associated Diagnosis Comments ANEMIA CBC Routine 11/28/2023 10:19 AM EDT Supervision of other normal , antepartum DIFFERENTIAL, AUTOMATED Routine 11/28/2023 10:19 AM EDT Supervision of other normal , antepartum documented in this encounter Results * (ABNORMAL) DIFFERENTIAL, AUTOMATED (11/28/2023 10:19 AM EDT) WBC 9.92 4.00 - 10.80 K/uL 11/28/2023 10:44 AM EDT LAB[facility] [place] 57-10 Neutrophils % 79.2(H) 40.0 - 75.0 % 11/28/2023 10:44 AM EDT [facility] [place] 57-10 Lymphocytes % 13.1(L) 18.0 - 42.0 % 11/28/2023 10:44 AM EDT [facility] [place] 57-10 Monocytes % 5.2 1.0 - 11.0 % 11/28/2023 10:44 AM EDT [facility] [place] 57-10 Eosinophils % 2.3 0.0 - 6.0 % 11/28/2023 10:44 AM EDT [facility] [place] 57-10 Basophils % 0.2 0.0 - 2.0 % 11/28/2023 10:44 AM EDT [facility] [place] 57-10 Absolute Neutrophils 7.85(H) 1.80 - 7.70 K/uL 11/28/2023 10:44 AM EDT [facility] [place] 57-10 Absolute Lymphocytes 1.30 1.00 - 4.80 K/ul 11/28/2023 10:44 AM EDT [facility] [place] 57-10 Absolute Monocytes 0.52 0.00 - 1.10 K/uL 11/28/2023 10:44 AM EDT [facility]ORY [facility] [place] 57-10 Absolute Eosinophils 0.23 0.00 - 0.70 K/uL 11/28/2023 10:44 AM EDT [facility] [place] 57-10 Absolute Basophils 0.02 0.00 - 0.20 K/uL 11/28/2023 10:44 AM EDT [facility] Blood Venous blood specimen / Unknown Venipuncture / Unknown 11/28/2023 10:19 AM EDT 11/28/2023 10:19 AM EDT Anali Del Rosario PA-C LAB BLOOD ORDERABLES [facility] [place] [facility]ie [facility] [place] [address] * ANEMIA CBC (11/28/2023 10:19 AM EDT) WBC 9.92 4.00 - 10.80 K/uL 11/28/2023 10:44 AM EDT [facility]ORY [facility] [place] 57-10 RBC 3.95 3.85 - 5.15 M/uL 11/28/2023 10:44 AM EDT [facility] [place] 57-10 HGB 12.3 12.0 - 15.3 g/dL 11/28/2023 10:44 AM EDT [facility] [place] 57-10 Comment: Anemia reflex testing triggers on a HGB < 12.0 for Females and HGB < 13.0 for Males in accordance with the WHO Anemia Guidelines Anemia reflex testing triggers on a HGB < 12.0 for Females and HGB < 13.0 for Males in accordance with the WHO Anemia Guidelines HCT 37.1 36.0 - 45.2 % 11/28/2023 10:44 AM EDT [facility] MCV 93.9 81.5 - 97.5 fL 11/28/2023 10:44 AM EDT [facility] [place] 57-10 MCH 31.1 27.0 - 34.0 pg 11/28/2023 10:44 AM EDT [facility] MCHC 33.2 32.0 - 36.0 g/dL 11/28/2023 10:44 AM EDT [facility] [place] 57-10 RDW 12.7 11.5 - 15.5 % 11/28/2023 10:44 AM EDT [facility] [place] 57-10 PLT 173 140 - 400 K/uL 11/28/2023 10:44 AM EDT [facility] [place] 57-10 MPV 10.8 6.6 - 11.1 fL 11/28/2023 10:44 AM EDT [facility] [place] 57-10 Blood Venous blood specimen / Unknown Venipuncture / Unknown 11/28/2023 10:19 AM EDT 11/28/2023 10:19 AM EDT Anali Del Rosario PA-C LAB BLOOD ORDERABLES [facility] [place] 57-10 [address] [place] [address] documented in this encounter Visit Diagnoses Diagnosis Supervision of other normal , antepartum documented in this encounter Advance Directives * Full Code (Latest Code Status on File) Date Activated Date Inactivated Comments 01/23/2022 5:37 PM 01/26/2022 3:08 PM This order r eflects the patients wishes and were consensually agreed upon. Question Answer Comments Discussion of Advance Direct cherelle occurred with: Not Discussed due to patient's condition Care Teams Feed Handler Relationship Specialty Start Date End Date Bernadette Damian CRNP [address] [place] [address] PCP - General Nurse Practitioner 09/30/23 documented as of this encounter
--- OUTSIDE RECORDS SUMMARY | 2024-02-17 13:13 | External Medical Summary | Summary of Care ---
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 Never true 09/22/2022 [place] Depression Scale Answer Date Recorded [place] Depression Scale Total 0 07/01/2023 The thought [...] Description 12/28/2023 3:30 PM EDT Imaging Radiology [facility] 2nd [facility] [address] [address] 12/28/2023 4:30 PM EDT Office Visit Gynecology/Obstetrics [facility] [address] [place] [address] Anali Del Rosario PA-C [address] [place] [address] 01/11/2024 4:30 PM EDT Office Visit Gynecology/Obstetrics [facility] [address] [place] [address] Anali Del Roasrio PA-C [address] [place] [address] 01/23/2024 4:30 PM EDT Office Visit Gynecology/Obstetrics [facility] [address] [place] [address] Anali Del Rosario PA-C [address] [place] [address] 01/30/2024 3:30 PM EDT [facility] [address] [place] [address] 01/30/2024 4:30 PM EDT Office Visit Gynecology/Obstetrics [facility] [address] [place] [address] Anali Del Rosario PA-C [address] [place] [address] 02/08/2024 3:15 PM EDT Office Visit Gynecology/Obstetrics [facility] [address] [place] [address] Genevieve Ordoñez CRNP [address] [place] [address] 02/13/2024 4:30 PM EDT Office Visit Gynecology/Obstetrics [facility] [address] [place] [address] Anali Del Rosario PA-C [address] [place] [address] Scheduled Procedures Name Priority Associated Diagnoses Date/Ti [...] Discussed due to patient's condition Care Teams Damage Prevention Coordinator Relationship Specialty Start Date End Date Bernadette Damian CRNP [address] [place] [address] PCP - General Nurse Practitioner 09/30/23 documented as of this encounter
--- OUTSIDE RECORDS SUMMARY | 2024-02-17 13:14 | External Medical Summary | Summary of Care ---
Author Name Unknown Organization [facility] Address [address] [place] [address] Phone [phone] Care Team Providers Care Senior Hr Business Partner Name Role Phone Unavailable Primary Care Provider Unavailabl e Reason for Visit * Reason Comments Return Visit Encounter Details Date Type Department Care Team (Late st Contact Info) Description 08/23/2023 4:00 PM EDT Office Visit Gynecology/Obstetric [facility] [address] [facility] [place] [address] Nicolasa Wolff CNM [address] [facility] [place] [address] Supervision of other normal , antepartum*; Obesity, Class II, BMI 35-39.9, isolated (see actual BMI); History of depression Allergies Active Allergy Reactions Criticality Noted Date Comments Food (See Comments) High 11/04/2014 [place]elnut - anaphylaxis documented as of this encounter (statuses as of 08/23/2023) Medications Medication Sig Dispensed Refills Start Date End Date Status Plus 27-1 MG Oral Tablet Take 1 Tablet by mouth in the morning. 0 Active Omeprazole 20 MG Oral Tablet Delayed ReleaseIndications: Dysphagia, unspecified type Take 1 Tablet by mouth in the morning. 90 Tablet 3 05/09/2023 Active Additional Information Patient not taking.Reported on 07/01/2023 Triamcinolone Acetonide 0.1 % External Ointment (Aristocort) Apply 2x daily to rash on legs until resolved, then when flaring. See printed checkout sheet for regimen instructions. 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 Overview: Per vascular ultrasound technician/onc, yearly pelvic u/s and endometrial biopsy [...] as of this encounter (statuses as of 08/23/2023) Resolved Problems Problem Noted Date Diagnosed Date [...] as of this encounter (statuses as of 08/23/2023) Immunizations Name Administration Dates Next Due COVID-19 mRNA, LNP-s, No Pre serve, 2-Dose Series ([place]) 03/24/2021,06/09/2020,05/16/2020 HEP A - Hepatitis A (Adult > 18 yrs) 11/04/2014, 12/08/2011 HPV Vaccine, 4-Valent 02/14/2012,09/27/2011,07/2011 Meningococcal Conjugate Vacc ine (Menactra/Menveo) 01/19/2007 PPD 09/22/2022,12/08/2011,10/05/2010 Seasonal Influenza, PF, 6 M & above, IM , (FluLaval or Fluzone) 07/01/2023,12/25/2021,01/20/2021 Seasonal Influenza, Quadriva lent, No Preserve, IM 01/10/2020 Seasonal Influenza, Split, I IV3, With Preserve, Inj 04/23/2014,04/29/2012,02/27/2008 TDAP (age 10 and older)(Boostrix) 10/23/2021, TDAP (age 11 and older)(Adacel) 01/19/2007 Varicella Vaccine (Chicken Pox) 12/08/2011 documented [...] money to get more. Never true 09/22/2022 [place] Depression Scale Answer Date Recorded [place] Depression Scale Total 0 07/01/2023 The thought [...] Sign Reading Time Taken Comments Blood Pressure 110/68 08/23/2023 4:01 PM EDT Pulse - - Temperature - - Respiratory Rate - - Oxygen Saturation - - Inhaled Oxygen Concentration - - Weight 100.2 kg (221 lb) 08/23/2023 4:01 PM EDT Height - - Body Mass Index 37.93 07/26/2023 9:00 AM EDT documented in this encounter Progress Notes * Key Yang LPN - 08/23/2023 4:01 PM EDT Pt is currently 15w1d with an Estimated Date of Delivery: 02/13/24 - * Nicolasa Wolff CNM - 08/23/2023 4:00 PM EDT Kimberly Avalos is a 33 year old female here for her routine OB appointment at 15w1d Her Estimated Date of Delivery: 02/13/24 REVIEW OF SYSTEMS: She affirms movement. Denies vaginal bleeding, LOF, contractions, N/V, headache PHYSICAL EXAM: Filed Vitals: 08/23/23 1601 BP: 110/68 Weight: 100.2 kg (221 lb) +FHT 161 per US ASSESSMENT/PLAN: No diagnosis found. Supervision of - anatomy u/s due in 5 weeks scheduled - discussed MSAFP and role in detecting open neural tube defects. Patient desires - RTO in 4 weeks Nicolasa Wolff CNM documented in this encounter Plan of Treatment Upcoming Encounters Date Type Department Care Team (Late st Contact Info) Description 09/30/2023 9:45 AM EDT Imaging Radiology [facility] [address] [place] [address] 09/30/2023 11:30 AM EDT Office Visit Gynecology/Obstetrics [facility] [address] [place] [address] Anali Del Rosario PA-C [address] [place] [address] Scheduled Orders Name Type Priority Associated Diagnoses Orde r Schedule MATERNAL SERUM AFP Lab Routine Supervision of other normal , antepartum Ordered: 08/23/2023 Scheduled Procedures Name Priority Associated Diagnoses Date/Ti [...] depression documented in this encounter Advance Directives Latest Code Status on File Code Status Date Activated Date Inactivated Comments Full Code 01/23/2022 5:37 PM 01/26/2022 3:08 PM This order reflects the patients wishes and were consensually agreed upon. Question Answer Comments Discussion of Advance Directives occurred with: Not Discussed due to patient's condition
--- OUTSIDE RECORDS SUMMARY | 2024-02-17 13:14 | External Medical Summary | Summary of Care ---
Author Name Unknown Organization [facility] Address [address] [place] [address] Phone [phone] Care Team Providers Care Music Critic Name Role Phone Unavailable Primary Care Provider Unavailabl e Reason for Visit * Reason Onset Date Comments Order Request 09/14/2023 Encounter Details Date Type Department Care Team (Late st Contact Info) Description 09/14/2023 Telephone Gynecology/Obstetrics [facility] [address] [place] [address] Nicolasa Wolff CN [address] [place] [address] Order Request Allergies Active Allergy Reactions Criticality Noted Date Comments Food (See Comments) High 11/04/2014 Hazelnut - anaphylaxis documented as of this encounter (statuses as of 09/14/2023) Medications Medication Sig Dispensed Refills Start Date [...] as of this encounter (statuses as of 09/14/2023) Active Problems Problem Noted Date Diagnosed Date Supervision of other normal , antepartu m 07/26/2023 History of depression 07/26/2023 Normal in first trimester 07/01/2023 Class II obesity 07/01/2023 Need for prophylactic vaccin ation and inoculation against influenza 07/01/2023 Obesity, Class I, BMI 30.0-34.9 (see actual BMI) 06/24/2021 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 Overview: 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 fitness teacher/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, yearly pelvic u/s and endometrial biopsy [...] as of this encounter (statuses as of 09/14/2023) Resolved Problems Problem Noted Date Diagnosed Date [...] #1 Other acne 04/05/2012 12/29/2021 Menstruation, irregular 01/19/2007/07/2021 Generalized hyperhidrosis 01/19/2007 ADVANCE DIRECTIVE INFORMATION 02/18/2006 12/29/2021 Overview: Not applicable documented as of this encounter (statuses as of 09/14/2023) Immunizations Name Administration Dates Next Due COVID-19 mRNA, LNP-s, No Pre serve, 2-Dose Series ([employer]) 03/24/2021,06/09/2020,05/16/2020 HEP A - Hepatitis A [...] money to get more. Never true 09/22/2022 [place] Depression Scale Answer Date Recorded [place] Depression Scale Total 0 07/01/2023 The thought [...] encounter Miscellaneous Notes * Telephone Encounter - Tatianna De Leon OSA - 09/14/2023 3:[address] ORDER FOR US PREG SINGLE/1ST GEST, 14 WEEKS OR LATER documented in this encounter Plan of Treatment Upcoming Encounters Date Type Department Care Team (Late st Contact Info) Description 09/30/2023 9:45 AM EDT Imaging Radiology [facility] [address] [address] 09/30/2023 11:30 AM EDT Office Visit Gynecology/Obstetrics [facility] [address] [address] Anali Del Rosario PA-C [address] [place] [address] Scheduled Procedures Name Priority Associated Diagnoses Date/Ti [...]
--- OUTSIDE RECORDS SUMMARY | 2024-02-17 13:14 | External Medical Summary ---
Author Name Unknown Address Unknown Organization : Laboratory Report Ordering Provider Test Date Status BRAYAN JIMENEZ 08/25/2023 12:22:07 Final Observation Date Value Abnormality Reference (Units ) Status INTERPRETATION 08/25/2023 12:22:07 SEE BELOW Final Screen negative for open NTD . RISK FOR ONTD 08/25/2023 12:22:07 <1:5000 Final CALC'D GESTATIONAL AGE 0508/25/2023 12:22:07 15.4 Final AFP, SERUM 08/25/2023 12:22:07 24.9 (ng/mL) Final AFP MOM 08/25/2023 12:22:07 1.02 Final Reference Range:
NTD < 2.50
IDD <1.90
TWINS <4.00
TWINS IDD <3.50
TRIPLETS <4.50
The AFP test result indicates that this patient is
screen negative for open NTD. It should be noted
that normal test results can never guarantee the
of a normal baby and that 2-3% of newborns
have some type of physical or mental defect, many
of which are undetectable through any known
diagnostic technique.
This is a screening test, not a diagnostic test.
This risk assessment report is based in part on
demographic data provided by the ordering
physician. Please notify the laboratory promptly
if any data are incorrect. For assistance with
recalculations, please call your local [facility] laboratory. For assistance with
interpretation of these results, please contact
your Local [facility] genetic counselor or
call [phone] ([phone]).
Interpretive Cutoffs
Screen Positive for Open NTD:
> or = 2.50 adjusted MOM
> or = 1.90 adjusted MOM for insulin- dependent diabetics
> or = 4.00 adjusted MOM for twins
> or = 3.50 adjusted MOM for twins insulin-dependent diabetics
> or = 4.50 adjusted MOM for triplets
For additional information, please refer to
http://[employer] Arc/faq/ZSA65w4
(This link is being provided for
informational/educational purposes only.) DATE OF 08/25/2023 12:22:07 1990 Final COLLECTION DATE 08/25/2023 12:22:07 08/25/2023 Final MATERNAL WEIGHT 08/25/2023 12:22:07 220 (lbs ) Final EST'D DATE OF DELIVERY 08/25/2023 12:22:07 02/13/2024 Final TG DETERMINED BY 08/25/2023 12:22:07 LMP Final MOTHER'S ETHNIC ORIGIN 08/25/2023 12:22:07 WHITE Final NUMBER OF FETUSES 08/25/2023 12:22:07 1 Final INSULIN DEPEND DIABETIC 08/25/2023 12:22:07 NO Final REPEAT SPECIMEN 08/25/2023 12:22:07 NO Final HX OF NEURAL TUBE DEFECTS 08/25/2023 12:22:07 NO Final PREV DOWN SYND 08/25/2023 12:22:07 NO Final DONOR EGG 08/25/2023 12:22:07 NO Final DONOR AGE: EGG RETRIEVAL 08/25/2023 12:22:07 NOT GIVEN Final Test performed by [facility]
[address] [facility],
[place] [address]

Industrial Production Manager: Roz Mcelroy MD,PHD,WILLIAMS
Test Reported by Alessandro Flynn,
[facility],
[address] [place], [place]
Stefano Cuevas M.D., Ph.D., Director of Laboratories
, [facility] [id number] Performing Location
--- OUTSIDE RECORDS SUMMARY | 2024-02-17 13:14 | External Medical Summary | Summary of Care ---
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 Name Role Phone Unavailable Primary Care Provider Unavailabl e Reason for Visit * Reason Onset Date Comments Order Request 09/14/2023 Encounter Details Date Type Department Care Team (Late st Contact Info) Description 09/14/2023 Telephone Gynecology/Obstetrics [facility] [address] [place] [address] Nicolasa Schmidt CN [address] [place] [address] Order Request Allergies Active Allergy Reactions Criticality Noted Date Comments Food (See Comments) High 11/04/2014 Hazelnut - anaphylaxis documented as of this encounter (statuses as of 09/16/2023) Medications Medication Sig Dispensed Refills Start Date [...] as of this encounter (statuses as of 09/16/2023) Active Problems Problem Noted Date Diagnosed Date Supervision of other normal , antepartu m 07/26/2023 History of depression 07/26/2023 Normal in first trimester 07/01/2023 Class II obesity 07/01/2023 Need for prophylactic vaccin ation and inoculation against influenza 07/01/2023 Obesity, Class I, BMI 30.0-34.9 (see actual BMI) 06/24/2021 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 Never true 09/22/2022 [place] Depression Scale Answer Date Recorded [place] Depression Scale Total 0 07/01/2023 The thought [...] as of this encounter Miscellaneous Notes * Addendum Note - Nicolasa Schmidt CNM - 09/16/2023 8:35 AM EDTAddended by: NICOLASA SCHMIDT on: 09/16/2023 08:35 AM Modules accepted: Orders * Telephone Encounter - Tatianna De Leon OSA - 09/14/2023 3:[address] ORDER FOR US PREG SINGLE/1ST GEST, 14 WEEKS OR LATER documented in this encounter Plan of Treatment Upcoming Encounters Date Type Department Care Team (Late st Contact Info) Description 09/30/2023 9:45 AM EDT Imaging Radiology [facility] [address] [address] 09/30/2023 11:30 AM EDT Office Visit Gynecology/Obstetrics [facility] [address] [address] Anali Del Rosario PA-C [address] [place] [address] Scheduled Orders Name Type Priority Associated Diagnoses Orde r Schedule US PREG SINGLE/1ST GEST, 14 WEEKS OR LATER Medical Imaging Routine Supervision of other normal , antepartum Expected: 09/16/2023, Expires: 10/16/2024 Scheduled Procedures Name Priority Associated Diagnoses Date/Ti me COLONOSCOPY FLEXIBLE PROXIMAL DIAGNOSTIC Recall Bearden syndrome Health Maintenance Due Date Last Done Comments Hepatitis B (1 of 3 - 19+ 3-dose series) 2010 COVID-19 Vaccine ( - season) 2022 03/24/2021, 06/09/2020, 05/16/2020 Depression Screening [...] Supervision of other normal , antepartum- Primary documented in this encounter Advance Directives * Full Code (Latest Code Status on File) Date Activated Date Inactivated Comments 01/23/2022 5:37 PM 01/26/2022 3:08 PM This order r eflects the patients wishes and were consensually agreed upon. Question Answer Comments Discussion of Advance Direct cherelle occurred with: Not Discussed due to patient's condition
--- OUTSIDE RECORDS SUMMARY | 2024-02-17 13:14 | External Medical Summary | Summary of Care ---
Author Name Unknown Organization [facility] Address [address] [place] [address] Phone [phone] Care Team Providers Care Box Toe Cutter Name Role Phone Unavailable Primary Care Provider Unavailabl e Reason for Visit * Reason Comments Outpatient Testing Encounter Details Date Type Department Care Team (Late st Contact Info) Description 08/25/2023 12:50 PM EDT Laboratory Laboratory [facility] [address] [place] [phone] [facility] [address] [place] [address] Arrived Allergies Active Allergy Reactions Criticality Noted Date Comments Food (See Comments) High 11/04/2014 Hazelnut - anaphylaxis documented as of this encounter (statuses as of 08/25/2023) Medications Medication Sig Dispensed Refills Start Date [...] as of this encounter (statuses as of 08/25/2023) Active Problems Problem Noted Date Diagnosed Date Supervision of other normal , antepartu m 07/26/2023 History of depression 07/26/2023 Normal in first trimester 07/01/2023 Class II obesity 07/01/2023 Need for prophylactic vaccin ation and inoculation against influenza 07/01/2023 Obesity, Class I, BMI 30.0-34.9 (see actual BMI) 06/24/2021 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 Never true 09/22/2022 [place] Depression Scale Answer Date Recorded [place] Depression Scale Total 0 07/01/2023 The thought [...] Description 09/30/2023 9:45 AM EDT Imaging Radiology [facility] [address] [place] [address] 09/30/2023 11:30 AM EDT Office Visit Gynecology/Obstetrics [facility] [address] [place] [address] Anali Del Rosario PA-C [address] [place] [address] Scheduled Procedures Name Priority Associated Diagnoses Date/Ti [...] filedocumented as of this encounter Advance Directives Latest Code Status on File Code Status Date Activated Date Inactivated Comments Full Code 01/23/2022 5:37 PM 01/26/2022 3:08 PM This order reflects the patients wishes and were consensually agreed upon. Question Answer Comments Discussion of Advance Directives occurred with: Not Discussed due to patient's condition
--- NOTE | 2024-02-17 14:28 | Labor Progress Brief Note ---
Date of Service February 17, 2024 Assessment & Plan Admission and Anticipated Discharge Date Admission Date: February 17, 2024 Physical Exam Genitourinary: Manual OB Exam: + cervical dilation 1 cm, + cervical effacement 50% and + station high OB Exam Monitor Tracing: + external FHT monitor used, + external uterine monitor used, + category I and + normal FHT variability cervix softer but remains posterior will continue Cytotec for ripening Results & Data Vital Signs (Past 12 Hours) Vital Signs Temp Pulse Resp BP 02/17/24 11:23 36.8 C 71 18 117/80 02/17/24 07:56 36.7 C 85 20 123/79
[2024-02-17] MEDS: miSOPROStoL 50 MCG TAB PO SCH (14:36)
[2024-02-17] MEDS: OXYTOCIN 30 UNITS/NSS 30 UNITS/500 ML BAG IV PRN (21:37)
[2024-02-17] MEDS: LACTATED RINGER'S 1,000 ML IV SCH (22:37)
[2024-02-17] MEDS: fentANYL 2 MCG/ML BUPIVacaine 0.125%-NSS 100ML BAG ONE (23:03)
[2024-02-17] MEDS: LIDOCAINE 2%/EPINEPHRINE 1:200,000 20 ML PF ONE (23:03)
[2024-02-17] MEDS: SODIUM CHLORIDE 0.9% PF INJ 10 ML VIAL ONE (23:03)
[2024-02-17] MEDS: BUPIVACAINE 0.25% PF 30 ML VIAL ONE (23:03)
[2024-02-17] MEDS ORDERED: ONDANSETRON INJ 2 MG/ML 2 ML VIAL IV PRN (23:10)
[2024-02-17] MEDS ORDERED: fentaNYL citrate PF 100 MCG/2 ML VIAL EPI PRN (23:10)
[2024-02-17] MEDS: fentaNYL citrate PF 100 MCG/2 ML VIAL ONE (23:10)
[2024-02-17] MEDS ORDERED: NALOXONE HCL 0.4 MG/1 ML VIAL/CARP IV PRN (23:10)
[2024-02-17] MEDS ORDERED: fentANYL 2 MCG/ML BUPIVacaine 0.125%-NSS 100ML BAG EPI PRN (23:10)
[2024-02-17] MEDS ORDERED: NALBUPHINE HCL INJ 10 MG/ML AMP IV PRN (23:10)
[2024-02-17] MEDS ORDERED: ROPIVACAINE 0.5% PF 5 MG/ML 20 ML VIAL EPI PRN (23:10)
[2024-02-17] MEDS ORDERED: diphenhydrAMINE 50 MG/ML VIAL IV PRN (23:10)
[2024-02-17] MEDS ORDERED: NALOXONE HCL 1 MG in SODIUM CHLORIDE 0.9% 1,000 ML IV PRN (23:10)
[2024-02-17] MEDS ORDERED: ePHEDrine sulfate 50 MG/ML AMP IV PRN (23:10)
[2024-02-17] MEDS ORDERED: SODIUM CHLORIDE 0.9% PF INJ 10 ML VIAL EPI PRN (23:10)
[2024-02-17] MEDS ORDERED: LIDOCAINE 2% MPF LOCAL 5 ML VIAL EPI PRN (23:10)
[2024-02-17] MEDS ORDERED: PROMETHAZINE 6.25 MG/50.25 ML BAG IV PRN (23:10)
--- NOTE | 2024-02-17 23:10 | Anesthesiology Consultation ---
Date of Service February 17, 2024 Assessment & Plan Chart Review Chart Review: Patient NOT seen in Pre Admission Testing and Acceptable Risk for Labor Epidural Consults Requested none ASA ASA2 Proposed Anesthesia Anesthesia Type: Labor Epidural Risk / Benefits Reviewed With: PT / POA / Parent / Guardian, Accepts Plan and Informed Consent Obtained History Height/Weight Height: 5 ft 4 in Weight: 112.491 kg Allergies Allergy/AdvReac Type Severity Reaction Status Date / Time hazelnut Allergy Anaphylaxis Verified 02/17/24 08:07 Medications Home Medications Medication Instructions Recorded Confirmed Last Taken EPINEPHRINE (EPIPEN) 0.3 mg IM UD ALLERGIC REACTION ##2 04/14/14 Unknown omeprazole 20 mg capsule,delayed 20 mg PO DAILY 02/17/24 02/17/24 02/14/24 20:00 release vits no.130-ferrous fum 1 tab PO DAILY 02/17/24 02/17/24 02/16/24 08:00 27 mg iron-folic acid 800 mcg tablet ( Vitamin) Active Medications Generic Name Dose Route Start Last Admin Trade Name Freq PRN Reason Stop Dose Admin Oxytocin 30 units in 500 mls @ 1 mls/hr 02/17/24 21:12 02/17/24 21:37 Pitocin 30 Units/Nss IV 02/19/24 21:11 0.06 units/hr .Q24H PRN 1 mls/hr Labor Induction/Augmentation Administration Protocol 0.06 UNITS/HR Misoprostol 50 mcg 02/17/24 14:34 02/17/24 18:46 Misoprostol 50 Mcg Tab PO 03/18/24 14:33 Not Given Q4H JAMAR Exercise / Class Metabolic Activity II 4-5 Yardwork/Stairs/Walk up hill Past Family History Family History Other Colon cancer Past Surgical History Surgical History [place] teeth removed Past Anesthesia History No Hx of Anesthesia Complications and No Family Hx of Anesthesia Complications History of PONV No Hx of PONV and No Hx of Motion Sickness Social History Smoking Status: Never smoker Hx Alcohol Use: No Hx Substance Use: No Physical Exam Vital Signs Last Vital Signs Temp 36.6 C 02/17/24 23:07 Pulse 87 02/17/24 23:08 Resp 18 02/17/24 23:07 BP 135/61 02/17/24 23:08 Pulse Ox 94 02/17/24 23:06 ENMT Mouth: no dentition abnormality Thyromental Distance: > or= 3.5 Finger Breadths Mallampati Class: II Neck normal visual inspection Respiratory normal respiratory effort Auscultation: lungs clear to auscultation bilaterally Cardiovascular Rate/Rhythm: regular rate and regular rhythm Psychiatric Orientation: alert Testing Laboratory Results 02/17/24 10:07 Blood Type A Positive 02/17/24 10:07 Blood Type Cancelled 02/17/24 10:07 Antibody Screen Cancelled 02/17/24 10:07 Antibody Screen NEGATIVE 02/17/24 10:07
[2024-02-17] MEDS: fentaNYL citrate PF 100 MCG/2 ML VIAL EPI STA (23:26)
[2024-02-17] MEDS: BUPIVACAINE 0.25% PF 30 ML VIAL EPI STA (23:26)
[2024-02-17] MEDS: SODIUM CHLORIDE 0.9% PF INJ 10 ML VIAL EPI STA (23:27)
[2024-02-17] MEDS: LIDOCAINE 2%/EPINEPHRINE 1:200,000 20 ML PF EPI STA (23:27)
[2024-02-18] MEDS ORDERED: NURSING L&D Epidural Breakthrough Pain Update ONE (00:40)
--- NOTE | 2024-02-18 01:28 | Anesthesia Procedure Note ---
Date of Service February 18, 2024 Anesthesia Epidural Re-Dose Vital Signs Temp Pulse Resp BP Pulse Ox 36.6 C 88 18 124/65 99 02/17/24 23:07 02/18/24 01:26 02/17/24 23:07 02/18/24 01:26 02/18/24 01:24 Notes Pain Intensity: 8 Dilatation (cm): 3.0 Effacement (%): 50 10cc 0.25% bupivicane After Epidural Re-Dose Mental Status: alert / awake / arousable Pain: adequately controlled Airway Patency, RR, SpO2: stable & adequate BP & HR: stable & adequate
[2024-02-18] MEDS: BUPIVACAINE 0.25% PF 30 ML VIAL EPI PRN (01:40)
[2024-02-18] MEDS: OXYTOCIN 30 UNITS/NSS 30 UNITS/500 ML BAG IV PRN (02:27)
--- NOTE | 2024-02-18 02:44 | Delivery Summary ---
Vaginal Delivery Summary Date of Service February 18, 2024 Vaginal Delivery Summary live female LI over intact perineum with delayed cord clamping. Apgars 9/9 weight pending. Cord blood obtained followed by spontaneous delivery of intact placenta. Small 1st degree tear repaired with 3/0 Vicryl suture. QBL 179 ml. Final sponge, needle and instrument count are correct. Mom and baby stable.
[2024-02-18] MEDS ORDERED: HYDROCORTISONE ACETATE 25 MG SUPP PR PRN (04:09)
[2024-02-18] MEDS ORDERED: OXYTOCIN 30 UNITS/NSS 30 UNITS/500 ML BAG IV PRN (04:09)
[2024-02-18] MEDS ORDERED: bisacodyL 10 MG SUPP PR PRN (04:09)
[2024-02-18] MEDS ORDERED: ACETAMINOPHEN 325 MG TAB PO PRN (04:09)
[2024-02-18] MEDS ORDERED: EPINEPHrine INJ 1 MG/ML AMP IM PRN (04:30)
[2024-02-18] MEDS: ePHEDrine sulfate 50 MG/ML AMP ONE (05:36)
[2024-02-18] MEDS: PRENATAL VITAMIN 1 TAB PO SCH (08:00)
[2024-02-18] MEDS: DOCUSATE SODIUM 100 MG CAP PO SCH (08:00)
[2024-02-18] MEDS: FERROUS SULFATE 325 MG TAB PO SCH (08:00)
[2024-02-18] MEDS: IBUPROFEN 600 MG TAB PO PRN (08:00)
[2024-02-18] MEDS ORDERED: NON-FORMULARY MEDICATION (Prenatal Vit No.130-Iron-Folic [Prenatal Vitamin] 27 mg iron- 80 PO SCH (09:00)
[2024-02-18] MEDS: PANTOprazole 40 MG TAB PO SCH (09:02)
--- NOTE | 2024-02-18 09:40 | Obstetrical Progress Note ---
Date of Service February 18, 2024 Assessment & Plan Admission and Anticipated Discharge Date Admission Date: February 17, 2024 Subjective Patient is seen and examined. She feels well, no complaints. Has not been up t BR yet Tolerating regular diet with out N&V Bleeding is minimal No fever/ chills/ CP/ SOB/ N&V/ Leg pain Breast feeding without problems Vital Signs Height Weight Body Mass Index Blood Pressure Blood Pressure Position Temperature Temperature Source 5 ft 4 in 112.491 kg 42.5 115/78 Sitting 36.7 C Oral 02/17/24 23:10 02/17/24 23:10 02/17/24 08:11 02/18/24 07:25 02/18/24 07:25 02/18/24 07:25 02/18/24 07:25 Pulse Rate Respiratory Rate Pulse Oximetry 75 18 97 02/18/24 07:25 02/18/24 07:25 02/18/24 07:25 Lab Results 02/17/24 02/17/24 02/17/24 Range/Units 10:07 10:07 10:07 WBC 13.39 H (4.8-10.8) K/ul RBC 4.19 L (4.20-5.40) M/uL Hgb 12.6 (12.0-16.0) g/dl Hct 37.1 (37.0-47.0) % MCV 88.5 (80.0-100.0) fL MCH 30.1 (25.0-34.0) pg MCHC 34.0 (32.0-36.0) g/dL RDW Std Deviation 42.7 (36.4-46.3) fL RDW Coeff of Marsha 13.2 (11.5-14.5) % Plt Count 189 (130-400) K/uL MPV 11.0 (9.4-12.4) fL Treponema pallidum Ab Negative (Negative) Blood Type A Positive Cancelled Antibody Screen NEGATIVE Cancelled PE: General: Alert, orientedx3, NAD Abd: soft, NT, fundus firm, below Umbilicus Perineum intact, Lochia rubra minimal Ext; NT, no edema AP: 34 yo s/p , ppd# 0 VSS Afebrile doing well Continue routine care All questions were answered Results & Data Vital Signs (Past 12 Hours) Vital Signs Temp Pulse Pulse Pulse Resp BP BP 02/18/24 07:25 36.7 C 75 18 115/78 02/18/24 05:30 36.9 C 74 18 112/75 02/18/24 04:35 16 02/18/24 04:05 18 02/18/24 03:10 18 02/18/24 03:10 36.4 C L 18 02/18/24 02:54 77 02/18/24 02:49 80 02/18/24 02:44 88 02/18/24 02:41 91 H 02/18/24 02:39 82 02/18/24 02:35 85 153/60 H 02/18/24 02:34 97 H 02/18/24 02:33 84 02/18/24 02:29 86 02/18/24 02:25 84 02/18/24 02:24 86 02/18/24 02:19 02/18/24 02:19 80 02/18/24 02:19 91 H 142/65 H 02/18/24 02:17 92 H 02/18/24 02:17 84 147/63 H 02/18/24 02:14 90 02/18/24 02:13 82 114/71 02/18/24 02:11 82 02/18/24 02:11 82 109/57 L 02/18/24 02:09 75 133/72 02/18/24 02:07 71 124/78 02/18/24 02:05 81 127/83 02/18/24 02:04 79 02/18/24 02:03 80 118/75 02/18/24 02:01 78 107/57 L 02/18/24 01:59 76 124/62 02/18/24 01:57 83 124/66 02/18/24 01:55 78 124/60 02/18/24 01:54 77 02/18/24 01:53 79 114/57 L 02/18/24 01:52 74 129/68 02/18/24 01:49 02/18/24 01:49 73 02/18/24 01:49 73 02/18/24 01:45 94 H 94/50 L 02/18/24 01:44 02/18/24 01:44 89 02/18/24 01:44 96 H 107/53 L 02/18/24 01:43 88 02/18/24 01:39 96 H 171/101 H 02/18/24 01:37 95 H 116/66 02/18/24 01:36 90 136/70 02/18/24 01:35 82 02/18/24 01:34 86 02/18/24 01:33 96 H 120/67 02/18/24 01:29 100 H 02/18/24 01:28 90 02/18/24 01:26 88 124/65 02/18/24 01:24 95 H 02/18/24 01:22 101 H 02/18/24 01:19 94 H 02/18/24 01:16 87 02/18/24 01:14 93 H 02/18/24 01:12 81 138/103 H 02/18/24 01:10 84 02/18/24 01:09 94 H 02/18/24 01:04 100 H 02/18/24 01:03 84 02/18/24 00:59 83 02/18/24 00:57 83 02/18/24 00:56 78 126/74 02/18/24 00:54 86 02/18/24 00:51 83 02/18/24 00:49 77 02/18/24 00:46 76 02/18/24 00:44 94 H 02/18/24 00:41 81 118/66 02/18/24 00:39 97 H 02/18/24 00:34 87 02/18/24 00:29 89 02/18/24 00:26 83 142/84 H 02/18/24 00:24 88 02/18/24 00:23 88 02/18/24 00:19 85 02/18/24 00:14 84 02/18/24 00:12 82 02/18/24 00:09 90 02/18/24 00:06 90 02/18/24 00:04 83 02/17/24 23:59 86 02/17/24 23:56 100 H 117/65 02/17/24 23:54 96 H 02/17/24 23:49 86 02/17/24 23:44 88 02/17/24 23:42 80 125/77 02/17/24 23:39 94 H 02/17/24 23:34 92 H 02/17/24 23:29 80 02/17/24 23:27 76 135/66 02/17/24 23:24 85 02/17/24 23:19 77 02/17/24 23:14 78 02/17/24 23:10 74 130/63 02/17/24 23:09 80 02/17/24 23:08 87 135/61 02/17/24 23:07 18 02/17/24 23:07 36.6 C 18 02/17/24 23:06 89 127/68 02/17/24 23:04 02/17/24 23:04 81 02/17/24 23:04 83 136/65 02/17/24 23:02 83 133/77 02/17/24 23:00 80 02/17/24 23:00 81 133/77 02/17/24 22:59 89 02/17/24 22:54 92 H 02/17/24 22:50 104 H 139/91 02/17/24 22:49 107 H 02/17/24 22:44 87 02/17/24 22:39 80 02/17/24 22:34 89 02/17/24 22:25 75 02/17/24 22:22 78 02/17/24 22:20 78 02/17/24 22:15 83 02/17/24 22:11 82 123/76 02/17/24 22:10 80 Pulse Ox O2 Del Method 02/18/24 07:25 97 Room Air 02/18/24 05:30 97 Room Air 02/18/24 04:35 02/18/24 04:05 02/18/24 03:10 02/18/24 03:10 02/18/24 02:54 95 02/18/24 02:49 93 02/18/24 02:44 95 02/18/24 02:41 92 02/18/24 02:39 95 02/18/24 02:35 02/18/24 02:34 98 02/18/24 02:33 93 02/18/24 02:29 93 02/18/24 02:25 93 02/18/24 02:24 97 02/18/24 02:19 98 02/18/24 02:19 02/18/24 02:19 02/18/24 02:17 02/18/24 02:17 88 L 02/18/24 02:14 97 10/26/24 02:13 02/18/24 02:11 02/18/24 02:11 92 02/18/24 02:09 96 02/18/24 02:07 02/18/24 02:05 02/18/24 02:04 96 02/18/24 02:03 94 02/18/24 02:01 02/18/24 01:59 95 02/18/24 01:57 92 02/18/24 01:55 02/18/24 01:54 96 02/18/24 01:53 02/18/24 01:52 02/18/24 01:49 87 L 02/18/24 01:49 02/18/24 01:49 92 02/18/24 01:45 02/18/24 01:44 97 02/18/24 01:44 02/18/24 01:44 02/18/24 01:43 93 02/18/24 01:39 94 02/18/24 01:37 02/18/24 01:36 02/18/24 01:35 90 02/18/24 01:34 99 02/18/24 01:33 02/18/24 01:29 94 02/18/24 01:28 93 02/18/24 01:26 02/18/24 01:24 99 02/18/24 01:22 91 02/18/24 01:19 99 02/18/24 01:16 93 02/18/24 01:14 92 02/18/24 01:12 02/18/24 01:10 92 02/18/24 01:09 98 02/18/24 01:04 95 02/18/24 01:03 93 02/18/24 00:59 92 02/18/24 00:57 94 02/18/24 00:56 02/18/24 00:54 98 02/18/24 00:51 93 02/18/24 00:49 95 02/18/24 00:46 94 02/18/24 00:44 97 02/18/24 00:41 02/18/24 00:39 96 02/18/24 00:34 95 02/18/24 00:29 97 02/18/24 00:26 02/18/24 00:24 95 02/18/24 00:23 94 02/18/24 00:19 96 02/18/24 00:14 98 02/18/24 00:12 91 02/18/24 00:09 94 02/18/24 00:06 94 02/18/24 00:04 95 02/17/24 23:59 97 02/17/24 23:56 02/17/24 23:54 100 02/17/24 23:49 96 02/17/24 23:44 96 02/17/24 23:42 02/17/24 23:39 96 02/17/24 23:34 97 02/17/24 23:29 98 02/17/24 23:27 02/17/24 23:24 96 02/17/24 23:19 98 02/17/24 23:14 97 02/17/24 23:10 02/17/24 23:09 96 02/17/24 23:08 02/17/24 23:07 02/17/24 23:07 02/17/24 23:06 94 02/17/24 23:04 97 02/17/24 23:04 02/17/24 23:04 02/17/24 23:02 02/17/24 23:00 02/17/24 23:00 87 L 02/17/24 22:59 98 02/17/24 22:54 98 02/17/24 22:50 02/17/24 22:49 99 02/17/24 22:44 95 02/17/24 22:39 96 02/17/24 22:34 98 02/17/24 22:25 97 02/17/24 22:22 94 02/17/24 22:20 98 02/17/24 22:15 96 02/17/24 22:11 02/17/24 22:10 96
--- NOTE | 2024-02-18 10:16 | Anesthesia Procedure Note ---
Date of Service February 18, 2024 Anesthesia Post Epidural Note Vital Signs Vital Signs: Temp Pulse Resp BP Pulse Ox O2 Del Method 36.7 C 75 18 115/78 97 Room Air 02/18/24 07:25 02/18/24 07:25 02/18/24 07:25 02/18/24 07:25 02/18/24 07:25 02/18/24 07:25 Pain Intensity Abdomen: Pain Intensity: 2 Notes Mental Status: alert / awake / arousable and participated in evaluation Nausea / Vomiting: adequately controlled Pain: adequately controlled Airway Patency, RR, SpO2: stable & adequate BP & HR: stable & adequate Hydration State: stable & adequate Neuraxial Anesthesia: was administered and sensory block is resolving Anesthetic Complications: no major complications apparent and Pt Satisfied with anesthetic care Epidural: Removed without complications and With tip intact
[2024-02-18] MEDS: BENZOCAINE 20% SPRY 85 APPLN/85 GM CAN EXT PRN (16:19)
[2024-02-18 21:19] VITALS: RESP 18
[2024-02-18] MEDS: DIPHTHER/TETAN/PERTUS Vaccine (Tdap, Adol/Adult) 0.5mL IM ONE (21:22)
[2024-02-19 01:30] VITALS: O2SAT 97
[2024-02-19 07:31] LABS: Hematocrit (blood only) 34.4 % (37.0-47.0); Hemoglobin 11.2 g/dl (12.0-16.0); Mean Corpuscular Hemoglobin 29.8 pg (25.0-34.0); Mean Corpuscular Hgb Conc 32.6 g/dL (32.0-36.0); Mean Corpuscular Volume 91.5 fL (80.0-100.0); Mean Platelet Volume 11.2 fL (9.4-12.4); Platelet Count 169 K/uL (130-400); RDW Coefficient of Variation 13.6 % (11.5-14.5); RDW Standard Deviation 45.3 fL (36.4-46.3); Red Blood Count 3.76 M/uL (4.20-5.40)
[2024-02-19 09:45] VITALS: BP 108/75; PULSE 71; TEMP 98.4
--- NOTE | 2024-02-19 10:44 | Obstetrical Progress Note ---
Date of Service February 19, 2024 Assessment & Plan Admission and Anticipated Discharge Date Admission Date: February 17, 2024 Subjective Patient is seen and examined. She feels well, no complaints. Ambulating without dizziness Voiding without difficulty Tolerating regular diet with out N&V Bleeding is minimal No fever/ chills/ CP/ SOB/ N&V/ Leg pain Breast feeding without problems Lab Results 02/17/24 02/17/24 02/17/24 Range/Units 10:07 10:07 10:07 WBC 13.39 H (4.8-10.8) K/ul RBC 4.19 L (4.20-5.40) M/uL Hgb 12.6 (12.0-16.0) g/dl Hct 37.1 (37.0-47.0) % MCV 88.5 (80.0-100.0) fL MCH 30.1 (25.0-34.0) pg MCHC 34.0 (32.0-36.0) g/dL RDW Std Deviation 42.7 (36.4-46.3) fL RDW Coeff of Marsha 13.2 (11.5-14.5) % Plt Count 189 (130-400) K/uL MPV 11.0 (9.4-12.4) fL Treponema pallidum Ab Negative (Negative) Blood Type A Positive Cancelled Antibody Screen NEGATIVE Cancelled 02/19/24 Range/Units 06:48 WBC 12.30 H (4.8-10.8) K/ul RBC 3.76 L (4.20-5.40) M/uL Hgb 11.2 L (12.0-16.0) g/dl Hct 34.4 L (37.0-47.0) % MCV 91.5 (80.0-100.0) fL MCH 29.8 (25.0-34.0) pg MCHC 32.6 (32.0-36.0) g/dL RDW Std Deviation 45.3 (36.4-46.3) fL RDW Coeff of Marsha 13.6 (11.5-14.5) % Plt Count 169 (130-400) K/uL MPV 11.2 (9.4-12.4) fL Treponema pallidum Ab (Negative) Blood Type Antibody Screen Vital Signs Temp Pulse Pulse Resp BP Pulse Ox O2 Del Method 02/19/24 08:10 36.9 C 71 18 108/75 Room Air 02/19/24 00:15 36.6 C 90 18 115/79 97 Room Air 02/18/24 20:00 36.7 C 78 18 112/77 98 Room Air 02/18/24 15:07 37 C 82 16 120/80 98 Room Air 02/18/24 12:40 36.8 C 84 16 128/83 PE: General: Alert, orientedx3, NAD Abd: soft, NT, fundus firm, below Umbilicus Perineum intact, Lochia rubra minimal Ext; NT, no edema AP: 34 yo s/p , ppd# 1 VSS Afebrile doing well Continue routine care All questions were answered D/C home , f/u in office Results & Data Vital Signs (Past 12 Hours) Vital Signs Temp Pulse Pulse Resp BP Pulse Ox O2 Del Method 02/19/24 08:10 36.9 C 71 18 108/75 Room Air 02/19/24 00:15 36.6 C 90 18 115/79 97 Room Air
[2024-02-19] MEDS ORDERED: bisacodyL 5 MG TABEC PO SCH (20:00)
== END 2024-02-19 11:30 | disposition home or self-care (01) | DRG 807 ==
LOC: 4S1 07:37 → 4E2 02-18 05:37